=== PATIENT | male | born 1950 | race Caucasian/White ===

== ENCOUNTER 2020-10-06 08:23 | Outpatient (REF) | payer MEDICARE, SELFPAY ==
[2020-10-06 08:44] LABS: MANUAL DIFF FLAG NO
[2020-10-06 08:48] LABS: Basophils Absolute Auto 0.1 X10*3/uL (0.0-0.2); Basophils Percent Auto 1.1 % (0-2); Eosinophils Absolute Auto 0.5 X10*3/uL (0.0-0.4); Eosinophils Percent Auto 6.9 % (0-4); Hematocrit 44.2 % (42-52); Hemoglobin 14.4 g/dl (14.0-18.0); Imm Gran Abs Auto 0.02 X10*3/uL (0.00-0.03); Imm Gran Pct Auto 0.3 % (0.0-0.4); Lymphocytes Absolute Auto 1.9 X10*3/uL (1.2-4.9); Lymphocytes Percent Auto 26.2 % (20-40); Mean Corpuscular HGB Conc 32.6 g/dl (31.0-36.0); Mean Corpuscular Hemoglobin 29.9 pg (27.0-33.0); Mean Corpuscular Volume 91.9 fL (80-98); Mean Platelet Volume 9.3 fL (9.4-12.4); Monocytes Absolute Auto 0.6 X10*3/uL (0.1-1.2); Monocytes Percent Auto 8.4 % (2-11); Neutrophils Absolute Auto 4.1 X10*3/uL (2.0-8.3); Neutrophils Percent Auto 57.1 % (45-73); Platelet Count 239 X10*3/uL (160-400); Red Blood Count 4.81 X10*6/uL (4.60-5.80); Red Cell Distribution Width 11.7 % (11.0-16.0); White Blood Count 7.2 X10*3/uL (4.8-10.8)
[2020-10-06 09:14] LABS: Alanine Aminotransferase 25 U/L (0-40); Albumin Level 4.3 g/dL (3.5-5.0); Alkaline Phosphatase 63 U/L (39-117); Anion Gap 10 (12-20); Aspartate Amino Transferase 24 U/L (5-37); Bilirubin Total 0.6 mg/dL (0.0-1.0); Blood Urea Nitrogen 14 mg/dL (9-16); Calcium 9.5 mg/dL (8.4-10.2); Carbon Dioxide 30 mmol/L (22-29); Chloride 106 mmol/L (96-108); Cholesterol 184 mg/dL; Estimated Glomerular Filt Rate > 60; Glucose Fasting 104 mg/dL (60-99); HDL Cholesterol 55 mg/dL; LDL Cholesterol Calculated 104 mg/dl; Potassium 4.3 mmol/L (3.3-5.1); Sodium 142 mmol/L (135-145); Total Protein 6.9 g/dL (6.5-8.0); Triglycerides 128 mg/dL
[2020-10-06 09:16] LABS: Estimated Average Glucose 120 mg/dL; Hemoglobin A1c % 5.8 %
[2020-10-06 09:36] LABS: Prostate Specific Antigen 2.17 ng/mL (<0.05-4.0)
== END 2020-10-06 08:24 | disposition home or self-care (01) ==
LOC: HO.LAB 08:23
PROVIDERS: PCP Internal Medicine; Visit Provider Internal Medicine
DX: E78.00 Pure hypercholesterolemia, unspecified (principal); R73.03 Prediabetes; R35.1 Nocturia; Z12.5 Encounter for screening for malignant neoplasm of prostate
CPT/HCPCS: 36415; 80053; 80061; 83036; 84153; 85025

== ENCOUNTER 2021-10-05 08:11 | Outpatient (REF) | payer MEDICARE, SELFPAY ==
[2021-10-05 08:29] LABS: MANUAL DIFF FLAG NO
[2021-10-05 08:57] LABS: Basophils Absolute Auto 0.1 X10*3/uL (0.0-0.2); Basophils Percent Auto 1.3 % (0-2); Eosinophils Absolute Auto 0.5 X10*3/uL (0.0-0.4); Eosinophils Percent Auto 6.5 % (0-4); Hematocrit 42.8 % (42.0-52.0); Hemoglobin 14.2 g/dl (14.0-18.0); Imm Gran Abs Auto 0.02 X10*3/uL (0.00-0.03); Imm Gran Pct Auto 0.3 % (0.0-0.4); Lymphocytes Absolute Auto 1.6 X10*3/uL (1.2-4.9); Lymphocytes Percent Auto 22.3 % (20-40); Mean Corpuscular HGB Conc 33.2 g/dl (31.0-36.0); Mean Corpuscular Hemoglobin 30.3 pg (27.0-33.0); Mean Corpuscular Volume 91.5 fL (80.0-98.0); Mean Platelet Volume 9.4 fL (9.4-12.4); Monocytes Absolute Auto 0.6 X10*3/uL (0.1-1.2); Monocytes Percent Auto 8.8 % (2-11); Neutrophils Absolute Auto 4.3 x10*3/uL (2.0-8.3); Neutrophils Percent Auto 60.8 % (45-73); Platelet Count 241 X10*3/uL (160-400); Red Blood Count 4.68 X10*6/uL (4.60-5.80); Red Cell Distribution Width 11.9 % (11.0-16.0); White Blood Count 7.1 X10*3/uL (4.8-10.8)
[2021-10-05 09:39] LABS: Alanine Aminotransferase 21 U/L (0-40); Albumin Level 4.3 g/dL (3.5-5.0); Alkaline Phosphatase 65 U/L (39-117); Anion Gap 12 (12-20); Aspartate Amino Transferase 22 U/L (5-37); Bilirubin Total 0.9 mg/dL (0.0-1.0); Blood Urea Nitrogen 15 mg/dL (9-16); Calcium 9.3 mg/dL (8.4-10.2); Carbon Dioxide 27 mmol/L (22-29); Chloride 104 mmol/L (96-108); Cholesterol 176 mg/dL; Estimated Glomerular Filt Rate > 60; Glucose Fasting 102 mg/dL (60-99); HDL Cholesterol 56 mg/dL; LDL Cholesterol Calculated 107 mg/dl; Potassium 4.4 mmol/L (3.3-5.1); Sodium 139 mmol/L (135-145); Total Protein 6.9 g/dL (6.5-8.0); Triglycerides 68 mg/dL
== END 2021-10-05 08:12 | disposition home or self-care (01) ==
LOC: HO.LAB 08:11
PROVIDERS: PCP Internal Medicine; Visit Provider Internal Medicine
DX: E78.00 Pure hypercholesterolemia, unspecified (principal)
CPT/HCPCS: 36415; 80053; 80061; 85025

== ENCOUNTER 2021-12-07 09:21 | Outpatient (REF) | payer MEDICARE, SELFPAY ==
[2021-12-07 10:30] LABS: Estimated Average Glucose 123 mg/dL; Hemoglobin A1C 149.3165 umol/L; Hemoglobin A1c % 5.9 %
[2021-12-07 10:40] LABS: Anion Gap 15 (12-20); Blood Urea Nitrogen 15 mg/dL (9-16); Calcium 9.8 mg/dL (8.4-10.2); Carbon Dioxide 27 mmol/L (22-29); Chloride 103 mmol/L (96-108); Estimated Glomerular Filt Rate > 60; Glucose Random 99 mg/dL (60-115); Sodium 140 mmol/L (135-145)
[2021-12-07 11:04] LABS: Prostate Specific Antigen Scr 3.32 ng/mL (<0.05-4.0)
== END 2021-12-07 09:22 | disposition home or self-care (01) ==
LOC: HO.LAB 09:21
PROVIDERS: PCP Internal Medicine; Visit Provider Internal Medicine
DX: Z12.5 Encounter for screening for malignant neoplasm of prostate (principal); R73.03 Prediabetes; N40.0 Benign prostatic hyperplasia without lower urinary tract symptoms
CPT/HCPCS: 36415; 80048; 83036; 84153

== ENCOUNTER → 2022-02-01 07:27 | Outpatient (REF) | payer MEDICARE, SELFPAY ==
--- NOTE | ~2022-02-01 | NM_ITS ---
EXERCISE MYOCARDIAL PERFUSION STUDY INDICATION: Shortness of breath, abnormal EKG TECHNIQUE: The patient was brought in for an exercise perfusion study on 02/01/2022. Patient performed exercise as per Vance protocol and was injected 25 mCi of sestamibi once target heart rate was achieved. Images were obtained using the SPECT gamma camera interlaced with the gating device. Images were obtained in supine position. Resting perfusion study was performed on 02/05/2022. Patient was administered 25 mCi of sestamibi intravenously at rest. Images were then obtained in supine position. Total DLP 70mGy-cm. Images were processed with the software and compared side to side in short axis, horizontal long axis and vertical long axis views. FINDINGS: Raw images were reviewed. The stress perfusion study showed no significant perfusion abnormality. Both uncorrected as well as CT attenuation corrected images were reviewed. The gated study shows normal LV systolic function with calculated LVEF of 69%. LV cavity is normal in size. The gated study shows normal wall thickening and contraction of segments. Resting study shows no significant perfusion abnormality. Gating at rest reveals normal wall motion with ejection fraction at 60%. The findings are consistent with no reversible or fixed perfusion abnormality. NM/NM angela perf SPECT rest & str IMPRESSION: 1. Myocardial perfusion imaging study shows normal myocardial perfusion. 2. Gated LVEF is 59% during stress and 60% during rest. 3. Transient ischemic dilatation not present. EKG component of the test reported separately.
--- NOTE | 2022-02-01 07:30 | CA_ITS ---
Acquisition Time: 2022-02-01 07:55:59 Total Exercise Time: 00:05:30 Test Indications: Dyspnea Medications: Protocol: CIRILO Max HR: 151 BPM 100% of Pred: 151 BPM Max BP: 172/078 mmHG Max Work Load: 7.0 METS PT EXERCISED ON STD CIRILO PROTOCOL FOR 530 INTO STAGE 2. MAX HR 151-100%MAX. MILD SOB. NO CP. 2MMST DEP IN 2,3,F,V3-6.NML BP RESPONSE. POSITIVE TEST FOR INF/LAT STRAIN. AWAIT SCAN RESULTS. WILL REFER TO CARDIOLOGY Referred By: Kota Sims Overread By: AURE SIMS MD
== END ==
LOC: HO.CARD 07:27
PROVIDERS: PCP Internal Medicine; Visit Provider Internal Medicine
DX: R06.02 Shortness of breath (principal); R94.31 Abnormal electrocardiogram [ECG] [EKG]
CPT/HCPCS: 78452; 93017; A9500

== ENCOUNTER → 2022-03-12 14:38 | Outpatient (BNVA) | payer MEDICARE, SELFPAY | PROVIDERS: PCP Internal Medicine; Referring Provider Internal Medicine; Visit Provider Internal Medicine | DX: R06.02 Shortness of breath (principal) | CPT/HCPCS: 93005; 99202 ==

== ENCOUNTER → 2022-03-15 12:33 | Outpatient (REF) | payer MEDICARE, SELFPAY ==
--- NOTE | 2022-03-15 12:36 | CA_ITS ---
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 The visually estimated ejection fraction is between 55-60%. Diastolic function is normal for age. - Normal right ventricular cavity size and systolic function. Findings Left Ventricle Normal left ventricular size, thickness, systolic function, and wall motion. The visually estimated ejection fraction is between 55-60%. Diastolic function is normal for age. Right Ventricle Normal right ventricular cavity size and systolic function. Atria The left atrium is normal in size. There is no evidence of interatrial shunt by color Doppler. The right atrium is normal in size. Aortic Valve Normal aortic valve structure and function. There is no aortic valve stenosis. There is no aortic valve regurgitation. Mitral Valve Normal mitral valve structure and function. There is trace mitral valve regurgitation. There is no mitral valve stenosis. Pulmonic Valve Normal pulmonic valve structure and function. There is trace pulmonic valve regurgitation. Tricuspid Valve Normal tricuspid valve structure and function. There is trace tricuspid valve regurgitation. Normal right atrial pressure. There is no evidence of pulmonary hypertension. Great Vessels All visible segments of the aorta are normal in size. The visualized portions of the pulmonary artery and branches are normal. Venous The inferior vena cava is normal in size and collapses greater than 50% with inspiration. Pericardium/Pleural There is no evidence of pericardial effusion. Prior Study Comparison No prior study available for comparison. Measurements 2D Linear Measurements IVSd: 1.02 0.6-0.9/0.6-1.0 cm LVIDd: 4.58 3.9-5.3/4.2-5.9 cm LVIDd Index: 2.54 2.4-3.2/2.2-3.1 cm/m2 LVIDs: 3.40 2.0-3.6 cm LVPWd: 0.85 0.7-1.1 cm LA Diam: 3.30 2.7-3.8/3.0-4.0 cm LAIDs Index: 1.83 1.5-2.3 cm/m2 LV Mass: 178.77 67-162/88-224 g LV Mass Index: 99.31 43-95/49-115 g/m2 LVOT Diam: 2.10 3.0+(-)1.3 cm 2D Systolic Function EF 4C: 54.60 >55% EF 2C: 57.50 >55% EF BiP: 56.10 >55% Mitral Valve MV Pk E: 0.51 MV PK A: 0.72 MV Decel Time: 199.00 E/A: 0.70 E'Lateral: 8.70 E'Medial: 5.77 E/E' Med: 8.80 E/E' Lat: 5.90 PHT: 58.00 MVA PHT: 3.79 Decel [place]: 2.56 Aortic Valve AoV Pk Maximilian: 1.16 AoV Mn Maximilian: 0.83 AoV VTI: 0.23 AoV Pk Grad: 5.00 Aov Mn Grad: 3.00 CHRISTINE Cont.VTI: 2.92 LVOT LVOT Pk Maximilian: 0.99 LVOT Mn Maximilian: 0.63 LVOT VTI: 0.19 LVOT Pk Grad: 4.00 LVOT Mn Grad: 2.00 LVOT Diam: 2.10 LVOT Area: 3.46 Diastolic Function MV Pk E: 0.51 MV Pk A: 0.72 E/A: 0.70 E'Medial: 5.77 E/E' Med: 8.80 E' Laterial: 8.70 E/E' Lat: 5.90 Right Ventricle TAPSE (mm): 25.40 TVS' Maximilian: 12.30 Tricuspid Valve TR Pk Maximilian: 1.55 TR Pk Grad: 10.00 RA Press: 3.00 RVSP: 13.00 Great Vessels Aorta Sinus of Valsalva: 3.09 2.0-3.5 cm Ao Asc: 3.10 2.1-3.4 cm Updated in Other Vendor System with Status of Final Watson Gardner MD electronically signed on 03/17/2022 6:01:28 PM with status of Final
== END ==
LOC: HO.CARD 12:33
PROVIDERS: PCP Internal Medicine; Visit Provider Internal Medicine
DX: R06.02 Shortness of breath (principal)
CPT/HCPCS: 93306

== ENCOUNTER → 2022-05-23 13:44 | Outpatient (BNVA) | payer MEDICARE, SELFPAY | PROVIDERS: PCP Internal Medicine; Referring Provider Internal Medicine; Visit Provider Internal Medicine | DX: R06.02 Shortness of breath (principal); I25.10 Atherosclerotic heart disease of native coronary artery without angina pectoris; E78.5 Hyperlipidemia, unspecified; Z79.899 Other long term (current) drug therapy | CPT/HCPCS: 99212 ==

== ENCOUNTER 2022-06-10 13:41 | Outpatient (REF) | payer MEDICARE, SELFPAY ==
[2022-06-10 14:47] LABS: Anion Gap 12 (12-20); Blood Urea Nitrogen 17 mg/dL (9-16); Calcium 9.9 mg/dL (8.4-10.2); Carbon Dioxide 29 mmol/L (22-29); Chloride 104 mmol/L (96-108); Estimated Glomerular Filt Rate > 60; Glucose Random 97 mg/dL (60-115); Sodium 140 mmol/L (135-145)
== END 2022-06-10 13:42 | disposition home or self-care (01) ==
LOC: HO.LAB 13:41
PROVIDERS: PCP Internal Medicine; Visit Provider Internal Medicine
DX: I25.10 Atherosclerotic heart disease of native coronary artery without angina pectoris (principal)
CPT/HCPCS: 36415; 80048

== ENCOUNTER 2022-12-18 08:17 | Outpatient (REF) | payer MEDICARE, SELFPAY ==
[2022-12-18 08:55] LABS: MANUAL DIFF FLAG NO
[2022-12-18 09:10] LABS: Basophils Absolute Auto 0.1 X10*3/uL (0.0-0.2); Basophils Percent Auto 0.9 % (0-2); Eosinophils Absolute Auto 0.3 X10*3/uL (0.0-0.4); Eosinophils Percent Auto 4.4 % (0-4); Hematocrit 44.6 % (42.0-52.0); Hemoglobin 14.6 g/dl (14.0-18.0); Imm Gran Abs Auto 0.02 X10*3/uL (0.00-0.03); Imm Gran Pct Auto 0.3 % (0.0-0.4); Lymphocytes Absolute Auto 1.5 X10*3/uL (1.2-4.9); Lymphocytes Percent Auto 19.5 % (20-40); Mean Corpuscular HGB Conc 32.7 g/dl (31.0-36.0); Mean Corpuscular Hemoglobin 30.3 pg (27.0-33.0); Mean Corpuscular Volume 92.5 fL (80.0-98.0); Mean Platelet Volume 9.1 fL (9.4-12.4); Monocytes Absolute Auto 0.5 X10*3/uL (0.1-1.2); Monocytes Percent Auto 6.9 % (2-11); Neutrophils Absolute Auto 5.1 x10*3/uL (2.0-8.3); Platelet Count 258 X10*3/uL (160-400); Red Blood Count 4.82 X10*6/uL (4.60-5.80); Red Cell Distribution Width 11.6 % (11.0-16.0); White Blood Count 7.5 X10*3/uL (4.8-10.8)
[2022-12-18 09:29] LABS: Alanine Aminotransferase 18 U/L (0-40); Albumin Level 4.3 g/dL (3.5-5.0); Alkaline Phosphatase 71 U/L (39-117); Anion Gap 13 (12-20); Aspartate Amino Transferase 20 U/L (5-37); Bilirubin Total 0.6 mg/dL (0.0-1.0); Blood Urea Nitrogen 14 mg/dL (9-16); Calcium 9.9 mg/dL (8.4-10.2); Carbon Dioxide 29 mmol/L (22-29); Chloride 106 mmol/L (96-108); Cholesterol 181 mg/dL (<200); Estimated Glomerular Filt Rate > 60; Glucose Fasting 105 mg/dL (60-99); HDL Cholesterol 54 mg/dL (>40); LDL Cholesterol Calculated 113 mg/dL (<100); Potassium 4.7 mmol/L (3.3-5.1); Sodium 143 mmol/L (135-145); Total Protein 7.5 g/dL (6.5-8.0); Triglycerides 72 mg/dL (<150)
[2022-12-18 09:59] LABS: Prostate Specific Antigen Scr 3.06 ng/mL (<0.05-4.0); Vitamin B12 395 pg/mL (200-900)
== END 2022-12-18 08:18 | disposition home or self-care (01) ==
LOC: HO.LAB 08:17
PROVIDERS: PCP Internal Medicine; Visit Provider Internal Medicine
DX: N40.0 Benign prostatic hyperplasia without lower urinary tract symptoms (principal); E78.00 Pure hypercholesterolemia, unspecified; Z12.5 Encounter for screening for malignant neoplasm of prostate; Z87.19 Personal history of other diseases of the digestive system
CPT/HCPCS: 36415; 80053; 80061; 82607; 84153; 85025

== ENCOUNTER 2022-12-19 13:44 | Outpatient (AMB) | payer MEDICARE, SELFPAY ==
[2022-12-19 14:06] VITALS: BP 114/62; PULSE 73; BMI 21.9
--- NOTE | 2022-12-19 14:06 | MHC.OFFVIS ---
Intake Vital Signs 12/19/22 14:06 Height 5 ft 9 in Weight 148 lb 2.41 oz BMI 21.9 BP 114/62 Blood Pressure Location Lt brachial Position Sitting Pulse 73 Pulse Source Pulse Oximeter Intake Visit Reasons: fu CTA Allergies azithromycin Adverse Reaction (Intermediate, Verified 12/19/22 14:08) Abdominal Pain Medication List - Last Reconciled 12/19/22 by Andreina Luong, SENIOR SALES OPERATIONS ANALYST-C atorvastatin 10 mg PO DAILY HPI fu CTA HPI Details Donald is a 72-year-old male with past medical history hyperlipidemia who was being evaluated for shortness of breath. He recently had a CTA of the coronary arteries and now presents for follow-up. Today he reports that he does have some mild shortness of breath with activity. He feels that he may be deconditioned. 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 He denies any PND, orthopnea or edema. No chest discomfort at rest or with activity. No palpitations, presyncope, syncope, falls. He is only on atorvastatin for medications. PENDING SALE TO [facility] Surgical History H/O ileostomy Family History Mother HTN (hypertension) Diabetes Father HTN (hypertension) Brother Diabetes Sister Diabetes Social History Alcohol intake: current Alcohol intake frequency: holidays/special occasions only Patient Tobacco Use Status: Never used Tobacco Review of Systems Const All systems reviewed & are unremarkable except as noted in HPI and below ENT Denies dizziness Card Denies chest pain, Denies chest pain at rest, Denies chest pain with activity, Denies rapid heart rate, Denies pedal edema, Denies edema, Denies leg edema, Denies lightheadedness, Denies palpitations, Denies dyspnea, Reports dyspnea on exertion and Denies orthopnea Resp Denies cough, Denies dyspnea and Reports dyspnea on exertion GI Denies hematochezia and Denies change in stool character Musc Denies abnormal gait, Denies limited range of motion, Denies muscle cramps, Denies muscle weakness, Denies numbness, Denies radiating pain into limb, Denies stiffness and Denies tingling Neuro Denies abnormal gait, Denies dizziness, Denies numbness and Denies tingling Endo Denies palpitations Physical Exam Vital Signs: Last Vital Signs Pulse 73 12/19/22 14:06 BP 114/62 12/19/22 14:06 BMI result Body Mass Index 21.9 Const General: cooperative, healthy appearing, comfortable and no acute distress Orientation/consciousness: patient oriented x3 Neck Neck: Yes normal visual inspection Resp Effort & Inspection: normal respiratory effort Auscultation: clear to auscultation bilaterally, no crackles, no rales, no rhonchi and no wheezes Cardio Jugular venous distension: no JVD Rate: regular rate Rhythm: regular rhythm Heart sounds: S1 normal heart sound present, S2 normal heart sound present, no murmurs and no rubs Neuro General: patient oriented x3 Extrem General: Yes normal to inspection, No no pedal edema and No calf tenderness Psych Appearance: grossly normal Mental Status: mental status grossly normal Speech and movement: Normal speech and movement present Assessment & Plan Assessment & Plan (1) CAD (coronary artery disease): Comment: CTA of coronary arteries 06/14/2022, left main normal, proximal LAD thin layer of noncalcified plaque associated with minimal less than 25% stenosis, left circumflex no plaque or stenosis, RCA large vessel, normal, RCA dominant Code(s): I25.10 - Atherosclerotic heart disease of [place] coronary artery without angina pectoris Plan: Cardiac evaluation for shortness of breath. He underwent a stress with his PCP on 02/01/2022 showing exercise 5.5 minutes, mild shortness of breath, no chest discomfort, EKG changes suggesting ischemia, normal myocardial perfusion imaging. Echocardiogram was done on 03/15/2022 showing EF normal, diastolic function normal, RV normal . He saw Dr. Barajas in consultation on 05/23/2022. A CTA of the coronary arteries was then done on 06/14/2022 showing very mild nonobstructive coronary artery disease. Today he reports he has been doing well. He continues to have some shortness of breath with activity but feels now that it may be deconditioning. His symptom has not worsened over time. He has no chest discomfort at rest or with activity. Test results reviewed with him in detail. Continue on atorvastatin with ideal LDL goal less than 70. Recommend he start on aspirin 81 mg daily. Continue physical activity as tolerated. Discussed cardiology follow-up and he would prefer to follow with his PCP only. He will return to cardiology as needed for any new symptoms. (2) SOB (shortness of breath): Code(s): R06.02 - Shortness of breath Plan: As above Coding Level of Care Code Est Pt Level 3 (50287) Diagnoses CAD (coronary artery disease) I25.10 SOB (shortness of breath) R06.02 Time Spent (min) 22
== END 2022-12-19 14:31 | disposition home or self-care (01) ==
PROVIDERS: PCP Internal Medicine; Visit Provider Nurse Practitioner Family
DX: I25.10 Atherosclerotic heart disease of native coronary artery without angina pectoris (principal); R06.02 Shortness of breath
CPT/HCPCS: 99213

== ENCOUNTER → 2022-12-19 13:44 | Outpatient (BNVA) | payer MEDICARE, SELFPAY | PROVIDERS: PCP Internal Medicine; Visit Provider Nurse Practitioner Family | DX: I25.10 Atherosclerotic heart disease of native coronary artery without angina pectoris (principal); R06.02 Shortness of breath | CPT/HCPCS: 99212 ==

== ENCOUNTER 2023-12-20 07:43 | Outpatient (REF) | payer MEDICARE, SELFPAY ==
[2023-12-20 08:25] LABS: MANUAL DIFF FLAG NO
[2023-12-20 09:54] LABS: Basophils Absolute Auto 0.1 X10*3/uL (0.0-0.2); Eosinophils Absolute Auto 0.5 X10*3/uL (0.0-0.4); Eosinophils Percent Auto 4.7 % (0-4); Hematocrit 41.8 % (42.0-52.0); Hemoglobin 14.3 g/dl (14.0-18.0); Imm Gran Abs Auto 0.05 X10*3/uL (0.00-0.03); Imm Gran Pct Auto 0.5 % (0.0-0.4); Lymphocytes Absolute Auto 1.6 X10*3/uL (1.2-4.9); Lymphocytes Percent Auto 15.7 % (20-40); Mean Corpuscular HGB Conc 34.2 g/dl (31.0-36.0); Mean Corpuscular Hemoglobin 31.3 pg (27.0-33.0); Mean Corpuscular Volume 91.5 fL (80.0-98.0); Mean Platelet Volume 9.8 fL (9.4-12.4); Monocytes Absolute Auto 0.9 X10*3/uL (0.1-1.2); Monocytes Percent Auto 8.7 % (2-11); Neutrophils Absolute Auto 6.9 x10*3/uL (2.0-8.3); Neutrophils Percent Auto 69.4 % (45-73); Platelet Count 260 X10*3/uL (160-400); Red Blood Count 4.57 X10*6/uL (4.60-5.80); Red Cell Distribution Width 11.6 % (11.0-16.0)
[2023-12-20 10:31] LABS: Alanine Aminotransferase 25 U/L (0-40); Albumin Level 4.1 g/dL (3.5-5.0); Alkaline Phosphatase 76 U/L (39-117); Anion Gap 14 (12-20); Aspartate Amino Transferase 29 U/L (5-37); Bilirubin Total 0.6 mg/dL (0.0-1.0); Blood Urea Nitrogen 13 mg/dL (9-16); Calcium 9.8 mg/dL (8.4-10.2); Carbon Dioxide 28 mmol/L (22-29); Chloride 105 mmol/L (96-108); Cholesterol 168 mg/dL (<200); Estimated Glomerular Filt Rate > 60; Glucose Fasting 100 mg/dL (60-99); HDL Cholesterol 55 mg/dL (>40); LDL Cholesterol Calculated 92 mg/dL (<100); Potassium 4.5 mmol/L (3.3-5.1); Sodium 142 mmol/L (135-145); Total Protein 6.8 g/dL (6.5-8.0); Triglycerides 105 mg/dL (<150)
[2023-12-20 10:33] LABS: Prostate Specific Antigen Scr 2.46 ng/mL (<0.05-4.0)
== END 2023-12-20 07:44 | disposition home or self-care (01) ==
LOC: HO.LAB 07:43
PROVIDERS: PCP Internal Medicine; Visit Provider Internal Medicine
DX: E78.00 Pure hypercholesterolemia, unspecified (principal); Z12.5 Encounter for screening for malignant neoplasm of prostate
CPT/HCPCS: 36415; 80053; 80061; 84153; 85025

== ENCOUNTER 2024-07-15 13:30 | Outpatient (AMB) | payer MEDICARE, SELFPAY ==
--- NOTE | 2024-07-15 13:28 | MHC.PC.OV ---
Vital Signs 07/15/24 13:35 Height 5 ft 9 in Weight 142 lb BMI 21.0 BP 122/74 Blood Pressure Location Rt brachial Position Sitting Pulse 85 Pulse Source Pulse Oximeter Temp 97.8 F Temp Source Axillary Pulse Oximetry (%) 98 Oxygen Delivery Method Room Air Intake Visit Reasons: Routine - see comments Payment Processor Required: No Accompanied by: Self / Same As Patient Allergies azithromycin Adverse Reaction (Intermediate, Verified 07/15/24 13:29) Abdominal Pain Tobacco use date assessed: 07/15/24 Fall risk assessment: No Falls in past year Last assessed Fall Risk: 07/15/24 Dental Screening Dental Screen Date: 07/15/24 Did you have a dental visit in the last 12 months?: Yes Did you have a dental problem in the last 6 months where you did not have access to dental care?: No HPI HPI Comments History of Present Illness Details 74 year old male with a past medical history of CAD. hyperlipidemia, h/o UC s/p ileoostomy, allergica rhinitis presenting for follow up CV: Stable on atorvastatin History of UC s/p ileostomy. No colonoscopies ROS CONSTITUTIONAL: Denies weight loss, fever and chills. HEENT: Denies changes in vision and hearing. RESPIRATORY: Denies SOB and cough. CV: Denies palpitations and CP GI: Denies abdominal pain, nausea, vomiting and diarrhea. : Denies dysuria and urinary frequency. MSK: Denies new myalgia and joint pain. SKIN: Denies rash and pruritus. NEUROLOGICAL: Denies headache PSYCHIATRIC: Denies recent changes in mood. PHYSICAL EXAM: GENERAL: Alert and oriented x 3. NAD EYES: EOMI. Anicteric. HENT: Moist mucous membranes. No scleral icterus. No cervical lymphadenopathy. LUNGS: Clear to auscultation bilaterally. CARDIOVASCULAR: Regular rate and rhythm. No murmur. No JVD. ABDOMEN: Soft, non-tender +bs EXTREMITIES: No edema. Non-tender. SKIN: No rashes or lesions. Warm. NEUROLOGIC: No focal neurological deficits. CN II-XII grossly intact PSYCHIATRIC: Cooperative. Appropriate mood and affect [facility] Surgical History H/O ileostomy Family History Mother HTN (hypertension) Diabetes Father HTN (hypertension) Brother Diabetes Sister Diabetes Social History Housing: House Alcohol intake: current Alcohol intake frequency: holidays/special occasions only Patient Tobacco Use Status: Never used Tobacco e-Cigarette/Vaping Use: Never Used service: No Current occupational status: employed and retired Cognitive needs: No Hearing needs: No Vision needs: Yes (rx glasses) Questionnaire PHQ-9 Over the last 2 weeks, how often have you been bothered by any of the following problems? 1. Little interest or pleasure in doing things: not at all 2. Feeling down, depressed, or hopeless: not at all 3. Trouble falling or staying asleep, or sleeping too much: not at all 4. Feeling tired or having little energy: not at all 5. Poor appetite or overeating: not at all 6. Feeling bad about yourself - or that you are a failure or have let yourself or your family down: not at all 7. Trouble concentrating on things, such as reading the newspaper or watching television: not at all 8. Moving or speaking so slowly that other people could have noticed. Or the opposite - being so fidgety or restless that you have been moving around a lot more than usual: not at all Depression Screening Interpretation: Negative Depression Screening Done: Yes 00321 - PHQ-9 Billing: Yes Source: Developed by Drs. Curt Mack, Adwoa Moya, Tapan Rivas and colleagues, with an educational brittany from [employer]. Thrive Questionnaire Date Thrive assessed: 07/15/24 I am a: Patient Within the past 12 months, did the food you bought not last and you didn't have the money to get more?: Never true Within the past 12 months, did you worry whether your food would run out before you got money to buy more?: Never true Do you have trouble paying for medicines?: No Do you have trouble getting transportation to medical appointments?: No Do you have trouble paying your heating and electricity bill?: No Do you have trouble taking care of your child, family member or friend?: No Do you have trouble with day-to-day activities such as bathing, preparing meals, shopping, managing finances, etc.?: No Are you currently unemployed and looking for a job?: No Are you interested in more education?: No THRIVE Score: 0 AUDIT C Alcohol Use Questionnaire (AUDIT-C) 1. How often do you have a drink containing alcohol?: Monthly or less 2. How many drinks containing alcohol do you have on a typical day when you are drinking?: 1 or 2 3. How often do you have six or more drinks on one occasion?: Less than monthly Total Score: 2 CORWIN-7 AMB Questionnaire CORWIN-7 Date CORWIN - 7 assessed: 07/15/24 Feeling nervous, anxious, or on edge: 0 = Not at all Not being able to stop or control worryin = Not at all Worrying too much about different things: 0 = Not at all Trouble relaxin = Not at all Being so restless that it is hard to sit still: 0 = Not at all Becoming easily annoyed or irritable: 0 = Not at all Feeling afraid as if something awful might happen: 0 = Not at all Total CORWIN-7 score (0-4 normal; 5-9 mild; 10-14 moderate; 15-21 severe): 0 Source: Developed by Drs. Curt Mack, Adwoa Moya, Tapan Rivas and colleagues, with an educational brittany from [employer]. Physical exam (Primary Care) Vital Signs: Last Vital Signs Temp 97.8 F 07/15/24 13:35 Pulse 85 07/15/24 13:35 BP 122/74 07/15/24 13:35 Pulse Ox 98 07/15/24 13:35 Oxygen Delivery Method Room Air 07/15/24 13:35 BMI result Body Mass Index 21.0 Tobacco/Smoking Status: Tobacco use Status Tobacco use date assessed 07/15/24 07/15/24 13:30 Patient Tobacco Use Status Never used Tobacco 07/15/24 13:30 e-Cigarette/Vaping Use Never Used 07/15/24 13:39 Depression Screening Interpretation: Negative Thrive Assessment: Date of Thrive Assessment Date Thrive assessed 07/15/24 07/15/24 13:30 Coding Level of Care Code New Pt Level 3 (32025) Complex EM visit Add On G2211 Diagnoses Hyperlipidemia, unspecified hyperlipidemia type E78.5 Hyperlipidemia type: unspecified Coronary artery disease involving [place] coronary artery of [place] heart without angina pectoris I25.10 Coronary Disease-Associated Artery/Lesion type: [place] artery [place] vs. transplanted heart: [place] heart Associated angina: without angina Screening for prostate cancer Z12.5 Additional Codes PHQ-9 - 41127 - PHQ-9 Billing: Yes ([id number]) Assessment & Plan Assessment & Plan (1) Hyperlipidemia: Code(s): E78.5 - Hyperlipidemia, unspecified Category: Medical Qualifiers: Hyperlipidemia type: unspecified Qualified Code(s): E78.5 - Hyperlipidemia, unspecified (2) CAD (coronary artery disease): Comment: CTA of coronary arteries 06/14/2022, left main normal, proximal LAD thin layer of noncalcified plaque associated with minimal less than 25% stenosis, left circumflex no plaque or stenosis, RCA large vessel, normal, RCA dominant Code(s): I25.10 - Atherosclerotic heart disease of [place] coronary artery without angina pectoris Category: Medical Qualifiers: Coronary Disease-Associated Artery/Lesion type: [place] artery [place] vs. transplanted heart: [place] heart Associated angina: without angina Qualified Code(s): I25.10 - Atherosclerotic heart disease of [place] coronary artery without angina pectoris (3) Screening for prostate cancer: Code(s): Z12.5 - Encounter for screening for malignant neoplasm of prostate Category: Medical Plan 74 to establish care past medical, surgical, social reviewed Continue statin therapy. Due for labs Orders: Orders Lipid Panel Today E78.5 - Hyperlipidemia, unspecified, I25.10 - Atherosclerotic heart disease of [place] coronary artery without angina pectoris, R06.02 - Shortness of breath, Z12.5 - Encounter for screening for malignant neoplasm of prostate Prostate Specific Antigen Today E78.5 - Hyperlipidemia, unspecified, I25.10 - Atherosclerotic heart disease of [place] coronary artery without angina pectoris, R06.02 - Shortness of breath, Z12.5 - Encounter for screening for malignant neoplasm of prostate Complete Blood Count Auto Diff Today E78.5 - Hyperlipidemia, unspecified, I25.10 - Atherosclerotic heart disease of [place] coronary artery without angina pectoris, Z12.5 - Encounter for screening for malignant neoplasm of prostate Comprehensive Met. Panel Today E78.5 - Hyperlipidemia, unspecified, I25.10 - Atherosclerotic heart disease of [place] coronary artery without angina pectoris, R06.02 - Shortness of breath, Z12.5 - Encounter for screening for malignant neoplasm of prostate
[2024-07-15 13:35] VITALS: BP 122/74; PULSE 85; TEMP 36.6; O2SAT 98; BMI 21.0
--- OUTSIDE RECORDS SUMMARY | 2024-07-15 16:00 | XMS_ITS | Patient Health Record ---
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 Name Role Phone Virginia Falk Primary Care Provider Rishi Kwong Unavailable [phone] Jeannine Chun Unavailable [phone] Allergies Allergen (clinical drug ingredient) Drug/Non Drug Allergy documented on EMR Reaction Allergy Type Onset Date Status Biaxin pt states not allergic Drug Allergy Active erythromycin Erythromycin stomach ache Drug Allergy Active azithromycin Zithromax Z-Dat pt states not allergic Drug Allergy Active Reason For Referral No Information Medications Medication SIG (Take, Route, Frequency, Duration) Notes Start Date End Date Status Atorvastatin Calcium 10 MG Orally Active Immunizations Vaccine Route Administration Date Status Comme nts COVID-19 Pfizer BioNTech Vaccine Unknown 05/28/2020 Adm inistered COVID-19 Pfizer BioNTech Vaccine Unknown 06/18/2020 Adm inistered Influenza Unknown 11/21/2016 Administered Social History Tobacco Use: Social History Observation Description Date Details (start date - stop date) Never Smoker NA - NA Tobacco use other than smoking: Question Answer Notes Are you an other tobacco user? No Tobacco Control (Standard) Question Answer Notes Tobacco use: Nonsmoker Additional Findings: Tobacco non-user Current no nsmoker AUDIT-C (Standard) Question Answer Notes Did you have a drink containing alcohol in the p ast year? No Points 0 Interpretation Negative Problems Problem Type SNOMED Code ICD Code Onset Dates Problem Status W/U Status Risk Notes Problem Acquired hammer toe of right foot (236754448548999 5) Other hammer toe(s) (acquired), right foot (M20.41) Active confirmed Problem Onychomycosis (564965766) Onychomycosis (B35.1) Active confirmed Problem Ulcer of toe of right foot (disorder) (903237356929853 01) Skin ulcer of toe of right foot, limited to breakdown of skin (L97.511) Active confirmed Response to treatment, Nonapplicable Problem Localized, primary osteoarthritis of the ankle and/or foot (992738876) Arthritis of joint of lesser toe, right (M19.071) Active confirmed Vital Signs Heart Rate 88 /min 07/09/2024 Blood pressure diastolic 104 mm Hg 07/09/2024 Height 5ft 9in in 07/09/2024 Blood pressure systolic 159 mm Hg 07/09/2024 Weight 145 lbs 07/09/2024 BMI 21.41 kg/m2 07/09/2024 Procedures Procedure Date Ordered Date Performed Result Body Sit e 28562-HFEMLEK NAIL, 6 OR MORE 06/07/2024 N/A 53439- Debride <25 sq cm 06/07/2024 N/A 90532 I&D ABSCESS- SIMPLE,SINGLE 06/07/2024 N/A Encounters Encounter Location Date [facility] [address] [address] 06/07/2024 Rishi Deion Pain in right toe(s) M79.674 ; Onychomycosis B35.1 ; Pain in left toe(s) M79.675 ; Abscess of toe, right L02.611 ; Other hammer toe(s) (acquired), right foot M20.41 ; Arthritis of joint of lesser toe, right M19.071 and Skin ulcer of toe of right foot, limited to breakdown of skin L97.511 [facility] [address] [address] 07/09/2024 Jeannine Chun Pain in right toe(s) M79.674 ; Other hammer toe(s) (acquired), right foot M20.41 and Arthritis of joint of lesser toe, right M19.071 [facility] [place] [address] [place] [address] 07/09/2024 Jeannine Chun Assessments Encounter Date Diagnosis (ICD Code) Assessment Notes Treatment Notes Treatment Clinical Notes Section Notes 06/07/2024 Pain in right toe(s) (ICD-10 - M79.674) 07/09/2024 Pain in right toe(s) (ICD-10 - M79.674) 07/09/2024 Other hammer toe(s) (acquired), right foot (ICD-10 - M20.41) 07/09/2024 Arthritis of joint of lesser toe, right (ICD-10 - M19.071) 06/07/2024 Onychomycosis (ICD-10 - B35.1) 06/07/2024 Pain in left toe(s) (ICD-10 - M79.675) 06/07/2024 Abscess of toe, right (ICD-10 - L02.611) Patient Educated with: WOUND CARE INSTRUCTIONS. pdf (WOUND CARE INSTRUCTIONS. pdf) 06/07/2024 Other hammer toe(s) (acquired), right foot (ICD-10 - M20.41) 06/07/2024 Arthritis of joint of lesser toe, right (ICD-10 - M19.071) 06/07/2024 Skin ulcer of toe of right foot, limited to breakdown of skin (ICD-10 - L97.511) Response to treatment, Nonapplicable Patient Educated with: WOUND CARE INSTRUCTIONS. pdf (WOUND CARE INSTRUCTIONS. pdf) 06/07/2024 Other Plan Of Treatment Pending Test Test Name Order Date X ray : Foot, right 3V 07/09/2024 68915-KCMDWBI NAIL, 6 OR MORE 06/07/2024 11121-CIHYHKJ NAIL, 6 OR MORE 05/17/2021 77342-RDCYFTH NAIL, 6 OR MORE 06/12/2022 32210-PBJMTSN NAIL, 6 OR MORE 12/18/2022 19285-JWIZGZL NAIL, 6 OR MORE 04/16/2023 76614-TNWNMUB NAIL, 6 OR MORE 10/20/2017 36242-DLCNKFP NAIL, 6 OR MORE 04/20/2018 25751-GHVOHFF NAIL, 6 OR MORE 10/21/2018 45863-PUNZHQW NAIL, 6 OR MORE 04/21/2019 39385-WLASFAY NAIL, 6 OR MORE 11/11/2019 11530-RTOVGUN NAIL, 6 OR MORE 02/17/2020 67452-ICGRIPK NAIL, 6 OR MORE 05/18/2020 64785-MIBDCGP NAIL, 6 OR MORE 11/16/2020 42933-Heej Destruction, 02-2311/16/2020 67383-Sauw Destruction, 02-2305/18/2020 55584-Khvo Destruction, 02-2302/17/2020 61907-Bsjv Destruction, 02-2311/11/2019 13760-Yfmn Destruction, 02-2304/21/2019 11098-Ywpa Destruction, 02-2310/21/2018 39305-Hfxp Destruction, 02-2304/20/2018 97039-Gnwo Destruction, 02-2304/16/2023 11543-Zeyi Destruction, 02-2312/18/2022 21944-Npyl Destruction, 02-2306/12/2022 03854-Kfpa Destruction, 02-2305/17/2021 55375- Debride <25 sq cm 06/07/2024 03908 I&D ABSCESS- SIMPLE,SINGLE 025 85713 - Tenotomy, open flexor 04/28/2019 66973 - TENOTOMY, OPEN, EXTENSOR 020 Insurance Providers Payer Name Payer Address Payer Phone Subscriber Number Group Number Insured Name Patient Relationship to Insured Coverage Start Date Coverage End Date Medicare National [employer] [address] [place] [address] [id number] Donald Rodriguez Self - patient is the insured 8 [employer] [facility] [address] [place] [address] [id number] Donald Rodriguez Self - patient is the insured Medical (General) History Medical History History ICD Code Colitis Crohns disease Measles Mumps Chicken pox CAD Surgical History Surgery Date(Month/Year) ileostomy 1993
== END 2024-07-15 13:51 | disposition home or self-care (01) ==
LOC: HO.HMCHD 13:30
PROVIDERS: PCP Internal Medicine; Visit Provider Internal Medicine
DX: E78.5 Hyperlipidemia, unspecified (principal); I25.10 Atherosclerotic heart disease of native coronary artery without angina pectoris; Z12.5 Encounter for screening for malignant neoplasm of prostate

== ENCOUNTER → 2024-07-15 13:30 | Outpatient (BNVA) | payer MEDICARE, SELFPAY | PROVIDERS: PCP Internal Medicine; Visit Provider Internal Medicine | DX: E78.5 Hyperlipidemia, unspecified (principal); I25.10 Atherosclerotic heart disease of native coronary artery without angina pectoris; Z12.5 Encounter for screening for malignant neoplasm of prostate | CPT/HCPCS: 96127; 99202 ==

== ENCOUNTER 2024-09-05 10:10 | Inpatient (IN) | payer MEDICARE, SELFPAY ==
--- NOTE | ~2024-09-05 | CT_ITS ---
CLINICAL HISTORY: L flank pain CT abdomen and pelvis without contrast Comparison: None provided Findings: No consolidation or effusion. There is a 2 cm cyst within the left kidney. There is no left-sided hydronephrosis, however there is mild left hydroureter. At the left ureterovesical junction there is a cluster of two 2 mm stones. Right kidney is normal. 1 cm cyst in the right kidney. No hydronephrosis of the right kidney. Spleen, adrenal glands, pancreas, contracted gallbladder and liver unremarkable. There is a ileostomy in the right lower quadrant. There has been a previous total colectomy. Small bowel loops are normal caliber without evidence of small-bowel obstruction. No wall thickening. No free air or ascites. Prostatomegaly, with protrusion into the base of the bladder. Bladder is unremarkable otherwise. No lytic or blastic bone lesions. No acute fracture deformity. IMPRESSION: There are two 2 mm stones at the left ureterovesical junction resulting in mild left hydroureter. Prostatomegaly. This document has been electronically signed by: Tremaine Cortez MD on 09/05/2024 12:13:15
[2024-09-05 10:31] VITALS: BP 136/75; PULSE 79; RESP 16; TEMP 36; O2SAT 98; BMI 21.7
--- OUTSIDE RECORDS SUMMARY | 2024-09-05 10:45 | XMS_ITS | Patient Health Record ---
Author Organization [facility] Address [address] [facility] [place] [address] Care Team Providers Care Direct Customer Service Representative Name Role Phone Virginia Falk Primary Care Provider Rishi Kwong Unavailable [phone] Jeannine Chun Unavailable [phone] Allergies Allergen (clinical drug ingredient) Drug/Non Drug [...] Vaccine Route Administration Date Status Comme nts Influenza Unknown 11/21/2016 Administered COVID-19 Pfizer BioNTech Vaccine Unknown 05/28/2020 Adm inistered COVID-19 Pfizer BioNTech Vaccine Unknown 06/18/2020 Adm inistered Social History Tobacco Use: Social History Observation [...] Problem Acquired hammer toe of right foot (20487833214281 05) Other hammer toe(s) (acquired), right foot (M20.41) Active confirmed Problem Onychomycosis (111749999) Onychomycosis (B35.1) Active confirmed Problem Ulcer of toe of right foot (disorder) (62990945811779 101) Skin ulcer of toe of right foot, limited to breakdown of skin (L97.511) Active confirmed Response to treatment, Nonapplicable Problem Arthritis of joint of lesser toe, right (M19.071) Active confirmed Vital Signs Heart Rate 88 /min 07/09/2024 Blood pressure diastolic 104 mm Hg 07/09/2024 Height 5ft 9in in 07/09/2024 Blood pressure systolic 159 mm Hg 07/09/2024 Weight 145 lbs 07/09/2024 BMI 21.41 kg/m2 07/09/2024 Procedures Procedure Date Ordered Date Performed Result Body Sit e 51557-ZHLYFIY NAIL, 6 OR MORE 06/07/2024 N/A 15552- Debride <25 sq cm 06/07/2024 N/A 12177 I&D ABSCESS- SIMPLE,SINGLE 06/07/2024 N/A Encounters Encounter Location Date [facility] [address] [address] 06/07/2024 Rishi Deion Pain in right toe(s) M79.674 ; Onychomycosis B35.1 ; Pain in left toe(s) M79.675 ; Abscess of toe, right L02.611 ; Other hammer toe(s) (acquired), right foot M20.41 ; Arthritis of joint of lesser toe, right M19.071 and Skin ulcer of toe of right foot, limited to breakdown of skin L97.511 [facility] [address] [address] 07/09/2024 Jeannine Chun Pain in right toe(s) M79.674 ; Other hammer toe(s) (acquired), right foot M20.41 and Arthritis of joint of lesser toe, right M19.071 [facility] [address] [place] [address] 07/09/2024 Jaennine Chun Assessments Encounter Date Diagnosis (ICD Code) [...] X ray : Foot, right 3V 07/09/2024 47549-SNFIWKL NAIL, 6 OR MORE 06/07/2024 01504-LFHQYEK NAIL, 6 OR MORE 05/17/2021 53093-RNSTGTV NAIL, 6 OR MORE 06/12/2022 43306-PQYVMEJ NAIL, 6 OR MORE 12/18/2022 93188-VDTJVSQ NAIL, 6 OR MORE 04/16/2023 24138-KTJMGHJ NAIL, 6 OR MORE 10/20/2017 56216-COENKRK NAIL, 6 OR MORE 04/20/2018 41250-NHJFBDT NAIL, 6 OR MORE 10/21/2018 68887-TXMAKGP NAIL, 6 OR MORE 04/21/2019 63025-ABZORWM NAIL, 6 OR MORE 11/11/2019 92323-YUGFZTT NAIL, 6 OR MORE 02/17/2020 11644-TGLQYIH NAIL, 6 OR MORE 05/18/2020 50132-RWBKASO NAIL, 6 OR MORE 11/16/2020 32114-Cjcl Destruction, 02-2311/16/2020 02314-Lrvt Destruction, 02-2305/18/2020 63568-Mtfh Destruction, 02-2302/17/2020 53585-Mjpc Destruction, 02-2311/11/2019 68891-Xvxg Destruction, 02-2304/21/2019 45312-Guca Destruction, 02-2310/21/2018 96548-Ltjp Destruction, 02-2304/20/2018 36643-Dvwi Destruction, 02-2304/16/2023 10500-Wbde Destruction, 02-2312/18/2022 68811-Omsk Destruction, 02-2306/12/2022 42250-Djkc Destruction, 02-2305/17/2021 05003- Debride <25 sq cm 06/07/2024 74349 I&D ABSCESS- SIMPLE,SINGLE 025 67102 - Tenotomy, open flexor 04/28/2019 06395 - TENOTOMY, OPEN, EXTENSOR 020 Insurance Providers Payer Name Payer Address Payer Phone Subscriber Number Group Number Insured Name Patient Relationship to Insured Coverage Start Date Coverage End Date Medicare National [employer] Sv[employer] [address] [place] [address] [id number] Donald Rodriguez Self - patient is the insured [facility] [address] [place] [address] [id number] Donald Rodriguez Self - patient is the insured Medical (General) History Medical History History ICD Code Colitis Crohns disease Measles Mumps Chicken pox CAD Surgical History Surgery Date(Month/Year) ileostomy 1993
[2024-09-05 10:48] LABS: Appearance Urine Clear; Glucose Urine UA Negative (Negative); PH 5.5 (5.0-9.0); Specific Gravity - Urine 1.010 (1.005-1.025); UMIC TRIGGER UACC YES
--- NOTE | 2024-09-05 10:59 | ED.ABDPAIN ---
HPI - Abdominal Pain General Chief Complaint: Abdominal Pain Stated Complaint: Kidney stone Time Seen by Provider: 09/05/24 10:36 Source: patient, family and old records reviewed Mode of arrival: ambulatory Limitations: no limitations History of Present Illness ED Provider: MARY HPI narrative: 74 yo malewith PMH of renal colic but no episodes in 10 years, HLD, has prior ileostomy in the for UC not on any medications currently here with c/o L flank pain moving since Friday night feels like a kidney stone tried water, tea but no improvement. He is able to urinate. Denies n/v/d fevers. His abdomen does not hurt. He states it just hasn't gone away. MD elicited complaint: flank pain Pertinent past history: kidney stones Onset (ago): day(s) (2) Pain Consistency: constant Location: L flank Severity: moderate Quality: stabbing and aching Radiation: none Migration to: L flank Exacerbating factors: nothing Relieving factors: nothing Context: history of similar episodes Associated symptoms: denies other symptoms Related Data Previous Rx's ?Medication ?Instructions ?Recorded atorvastatin 10 mg tablet 10 mg PO DAILY #90 tabs 05/14/24 Allergies Allergy/AdvReac Type Severity Reaction Status Date / Time azithromycin AdvReac Intermediate Abdominal Verified 09/05/24 10:32 Pain Review of Systems Review of Systems Constitutional : No Fever, No Chills, No Fatigue ENT/Mouth : No sore throat, No Rhinorrhea Eyes: No Eye Pain, No Swelling, No Redness Cardiovascular : No Chest Pain, No SOB, No Dyspnea on Exertion Respiratory : No Cough, No Sputum Gastrointestinal : No Nausea, No Vomiting, No Diarrhea, No abdominal Pain, pos flank pain Genitourinary : No Dysuria, No Urinary Frequency, No Hematuria, Musculoskeletal : No joint pain, No Myalgias, No Joint Swelling Skin : No Skin Lesions, No rash Neuro : No Weakness, No Numbness, No Dizziness, no Headache All other systems reviewed and are negative [facility] Past Medical History Attestation statement: The following information was validated with the patient. Source: old records reviewed Medical History Hyperlipidemia CAD (coronary artery disease) Surgical History H/O ileostomy Family History Family History Mother HTN (hypertension) Diabetes Father HTN (hypertension) Brother Diabetes Sister Diabetes Social History Social History Housing: House Alcohol intake: current Alcohol intake frequency: holidays/special occasions only Patient Tobacco Use Status: Never used Tobacco Smoked in Last 30 Days: No e-Cigarette/Vaping Use: Never Used Use of substances other than those prescribed or required for medical reasons: No Advance Directives: No Advance Directives Information Provided: Yes Do you have a plan to hurt others: No Plan service: No Current occupational status: employed and retired Cognitive needs: No Hearing needs: No Vision needs: Yes (rx glasses) Physical Exam ED Vital Signs: Vital Signs - 24 hr 09/05/24 10:31 Temperature 96.8 F Pulse Rate 79 Respiratory Rate 16 Blood Pressure 136/75 Pulse Oximetry 98 Oxygen Delivery Method Room Air BMI result Body Mass Index 21.7 Appearance: Alert. Oriented X3. No acute distress. Eyes: Pupils equal, round and reactive to light. ENT: Pharynx normal. Neck: Normal inspection. Neck supple. CVS: Normal heart rate and rhythm. Pulses normal. Respiratory: No respiratory distress. Breath sounds normal. Abdomen: Soft and nontender. no abd ttp on exam Skin: Skin warm and dry. Normal skin color. Normal skin turgor. Extremities: No lower extremity edema. No calf ttp Neuro: Oriented X 3. No motor deficit. No sensory deficit. CN2-12 intact Medical Decision Making Medical Decision Making [facility] Narrative: 74 yo malewith PMH of renal colic but no episodes in 10 years, HLD, has prior ileostomy in the for UC now here with c/o L flank pain but no associated symptoms he has no CP/SOB no abdominal pain or ttp at this time will obtain labs, UA, CT scan for renal colic/mass/constipation Differential Diagnosis Differential Diagnoses: The differential diagnosis associated with the presentation includes renal colic/mass/constipation Admission/Observation Consideration of admission/observation: Escalation of care including admission/observation considered admit for PAYAM no improvement with 2L of IVF Consult Healthcare Provider Management of the patient was discussed with: Hospitalist (hospitalist will admit) and Brick Grader Dr. Espinosa aware will follow Lab Data [facility] Lab Attestation statement: I reviewed the patient's lab results. 09/05/24 11:08 09/05/24 13:11 Labs: Lab Results 09/05/24 09/05/24 09/05/24 Range/Units 10:41 11:08 13:11 WBC 9.8 (4.8-10.8) X10*3/uL RBC 4.49 L (4.60-5.80) X10*6/uL Hgb 13.9 L (14.0-18.0) g/dl Hct 40.9 L (42.0-52.0) % MCV 91.1 (80.0-98.0) fL MCH 31.0 (27.0-33.0) pg MCHC 34.0 (31.0-36.0) g/dl RDW 11.9 (11.0-16.0) % Plt Count 259 (160-400) X10*3/uL MPV 9.5 (9.4-12.4) fL Immature Gran % (Auto) 0.3 (0.0-0.4) % Neut % (Auto) 72.3 (45-73) % Lymph % (Auto) 13.6 L (20-40) % [place] % (Auto) 9.1 (2-11) % Eos % (Auto) 4.0 (0-4) % Baso % (Auto) 0.7 (0-2) % Lymph # (Auto) 1.3 (1.2-4.9) X10*3/uL [place] # (Auto) 0.9 (0.1-1.2) X10*3/uL Eos # (Auto) 0.4 (0.0-0.4) X10*3/uL Baso # (Auto) 0.1 (0.0-0.2) X10*3/uL Abs Immat Gran (auto) 0.03 (0.00-0.03) X10*3/uL Absolute Neuts (auto) 7.1 (2.0-8.3) x10*3/uL Absolute Nucleated RBC 0.000 (0.0-0.012) X10*3/uL Nucleated RBC % (auto) 0.0 (0.0-0.2) /100WBC Sodium 143 (135-145) mmol/L Potassium 4.9 (3.3-5.1) mmol/L Chloride 107 (96-108) mmol/L Carbon Dioxide 28 (22-29) mmol/L Anion Gap 13 (12-20) BUN 19 H (9-16) mg/dL Creatinine 1.91 H 1.74 H (0.5-1.4) mg/dL Estim Creat Clear Calc 33.0 36.2 Estimated GFR 35 39 Random Glucose 100 (60-115) mg/dL Calcium 9.8 (8.4-10.2) mg/dL Magnesium 2.4 (1.6-2.6) mg/dL Total Bilirubin 0.4 (0.0-1.0) mg/dL Direct Bilirubin 0.1 (0.0-0.5) mg/dL AST 30 (5-37) U/L ALT 37 (0-40) U/L Alkaline Phosphatase 92 (39-117) U/L Total Protein 7.0 (6.5-8.0) g/dL Albumin 4.5 (3.5-5.0) g/dL Urine Color Yellow Urine Appearance Clear Urine pH 5.5 (5.0-9.0) Ur Specific [place] 1.010 (1.005-1.025) Urine Protein Negative (Neg-Trace) mg/dL Urine Glucose (UA) Negative (Negative) mg/dL Urine Ketones Negative (Negative) mg/dL Urine Blood Large (3+) H (Negative) Urine Nitrite Negative (Negative) Ur Leukocyte Esterase Negative (Negative) Urine RBC >20 H (0-2) /HPF Urine WBC 0-5 (0-5) /HPF Ur Squamous Epith Cells 0-2 (0-2) /HPF Urine Bacteria None Seen (None Seen) Hyaline Casts 0-2 (0-2) /LPF Independent Interpretation I performed an independent interpretation of an: CT Scan (L ureterolithiasis) Radiology Impression Discussion of test interpretation with radiology: I have reviewed the radiologist's reading. Independent Historian Clinical information obtained from an independent historian. History obtained from or confirmed by: Spouse External Record Review External record reviewed: Outpatient record Prescription Management I considered prescription management with: Pain Medication and Other Medications Administered Discontinued Medications Generic Name Dose Route Start Last Admin Trade Name Freq PRN Reason Stop Dose Admin Lactated Ringer's 1,000 mls @ 999 mls/hr 09/05/24 11:50 09/05/24 12:37 Lr IV 09/05/24 12:50 Infused .Q1H1M ONE Infusion Lactated Ringer's 1,000 mls @ 999 mls/hr 09/05/24 12:20 09/05/24 13:28 Lr IV 09/05/24 13:20 Infused .Q1H1M ONE Infusion Critical Care Time Critical Care Time Critical Care Time: Yes Total Critical Care Time: 35 Attestation: review of records, 2L of IVF for PAYAM - with repeat labs, medical consult, admission. I attest to this time spent taking care of the patient Discharge Plan Discharge Clinical Impression: Ureterolithiasis, PAYAM (acute kidney injury) Patient Disposition: Admitted As Inpatient Print Language: Kyrgyz
[2024-09-05 11:22] LABS: MANUAL DIFF FLAG NO
[2024-09-05 11:41] LABS: Hematocrit 40.9 % (42.0-52.0); Hemoglobin 13.9 g/dl (14.0-18.0); Imm Gran Abs Auto 0.03 X10*3/uL (0.00-0.03); Imm Gran Pct Auto 0.3 % (0.0-0.4); Lymphocytes Absolute Auto 1.3 X10*3/uL (1.2-4.9); Mean Corpuscular HGB Conc 34.0 g/dl (31.0-36.0); Mean Corpuscular Hemoglobin 31.0 pg (27.0-33.0); Mean Corpuscular Volume 91.1 fL (80.0-98.0); NRBC Abs Auto 0.000 X10*3/uL (0.0-0.012); NRBC Pct Auto 0.0 /100WBC (0.0-0.2); Platelet Count 259 X10*3/uL (160-400); Red Blood Count 4.49 X10*6/uL (4.60-5.80); White Blood Count 9.8 X10*3/uL (4.8-10.8)
[2024-09-05 11:45] LABS: Alanine Aminotransferase 37 U/L (0-40); Albumin Level 4.5 g/dL (3.5-5.0); Alkaline Phosphatase 92 U/L (39-117); Anion Gap 13 (12-20); Aspartate Amino Transferase 30 U/L (5-37); Blood Urea Nitrogen 19 mg/dL (9-16); Calcium 9.8 mg/dL (8.4-10.2); Carbon Dioxide 28 mmol/L (22-29); Chloride 107 mmol/L (96-108); Creatinine Clr Calc Pharmacy 33.0; Estimated Glomerular Filt Rate 35; Magnesium 2.4 mg/dL (1.6-2.6); Potassium 4.9 mmol/L (3.3-5.1); Sodium 143 mmol/L (135-145); Total Protein 7.0 g/dL (6.5-8.0)
[2024-09-05] MEDS: Lactated Ringers 1,000 ML 999 ML IV ×2 (11:55→12:38)
[2024-09-05 13:26] LABS: Creatinine Clr Calc Pharmacy 36.2; Estimated Glomerular Filt Rate 39
[2024-09-05 13:50] VITALS: BP 147/86; PULSE 78; RESP 12; TEMP 36.3; O2SAT 98
--- NOTE | 2024-09-05 13:52 | P.HPHOSP_ITS ---
History of Present Illness Date of Service: 09/05/24 Attending physician on admission: Mauro Wen Chief Complaint: payam 74 year old male with a past medical history of CAD. hyperlipidemia, h/o UC s/p ileoostomy, allergica rhinitis: Patient came to the hospital because of 3 days of left flank pain , patient says that he was taking lot of p.o. fluids, also was taking ibuprofen 1200 mg q.day(at once), yesterday he took ibuprofen 1200 mg in am and 600 mg in the evening : He said the pain was not improving so decided to come to the hospital. He feels like a kidney stone like pain. He is able to urinate. Denies n/v/d fevers. His abdomen does not hurt. He states it just hasn't gone away. In the ED:ivf /tylenol and ct abd: shows 2 mm stones upj left, mild hydroureter, prostatomegaly. UA shows microscopic hematuria. Patient also has PAYAM BUN 19, creatinine 1.9 after fluids 1.7 range. ED discussed the case with the urology-unclearif payam realted to kidney stone, patient will be admitted for further workup for payam. Review of Systems 2 Review of Systems: As above. Yes all other systems are reviewed and are negative [facility] Medical History Hyperlipidemia CAD (coronary artery disease) Family History Mother HTN (hypertension) Diabetes Father HTN (hypertension) Brother Diabetes Sister Diabetes Surgical History H/O ileostomy Social History Housing: House Alcohol intake: current Alcohol intake frequency: holidays/special occasions only Patient Tobacco Use Status: Never used Tobacco Smoked in Last 30 Days: No e-Cigarette/Vaping Use: Never Used Use of substances other than those prescribed or required for medical reasons: No Advance Directives: No Advance Directives Information Provided: Yes Do you have a plan to hurt others: No Plan service: No Current occupational status: employed and retired Cognitive needs: No Hearing needs: No Vision needs: Yes (rx glasses) Meds Allergies Allergy/AdvReac Type Severity Reaction Status Date / Time azithromycin AdvReac Intermediate Abdominal Verified 09/05/24 10:32 Pain Active Medications: Current Medications Lactated Ringer's (Lr) 1,000 mls @ 80 mls/hr IVCONT .[id number] Home Medications ?Medication ?Instructions ?Recorded ?Confirmed ?Last Taken ?Type atorvastatin 10 mg tablet 10 mg PO BEDTIME 09/05/2409/04/24 History Physical Exam 2 Vital Signs and Narrative: Vital Signs: Last Vital Signs Temp 97.4 F 09/05/24 13:50 Pulse 78 09/05/24 13:50 Resp 12 09/05/24 13:50 BP 147/86 H 09/05/24 13:50 Pulse Ox 98 09/05/24 13:50 O2 Del Method Room Air 09/05/24 13:50 BMI result Body Mass Index 21.7 Appearance: Alert.? Oriented X3. cvs: rrr, [id number] . res: clear to auscultation ,no rhonchii or wheezing abd: no rebound or guarding ,nt, bs present. Gu: left flank pain ext pulses present , no cyanosis . neuro: axo3 , nonfocal. Results Labs 09/05/24 11:08 09/05/24 13:11 Labs: Laboratory Results - last 24 hr 09/05/24 09/05/24 09/05/24 10:41 11:08 13:11 MCV 91.1 MCH 31.0 MCHC 34.0 RDW 11.9 Plt Count 259 MPV 9.5 Immature Gran % (Auto) 0.3 Neut % (Auto) 72.3 Lymph % (Auto) 13.6 L [place] % (Auto) 9.1 Eos % (Auto) 4.0 Baso % (Auto) 0.7 Lymph # (Auto) 1.3 [place] # (Auto) 0.9 Eos # (Auto) 0.4 Baso # (Auto) 0.1 Abs Immat Gran (auto) 0.03 Absolute Neuts (auto) 7.1 Absolute Nucleated RBC 0.000 Nucleated RBC % (auto) 0.0 Anion Gap 13 Estim Creat Clear Calc 33.0 36.2 Estimated GFR 35 39 Random Glucose 100 Calcium 9.8 Magnesium 2.4 Total Bilirubin 0.4 Direct Bilirubin 0.1 AST 30 ALT 37 Alkaline Phosphatase 92 Total Protein 7.0 Albumin 4.5 Urine Color Yellow Urine Appearance Clear Urine pH 5.5 Ur Specific [place] 1.010 Urine Protein Negative Urine Glucose (UA) Negative Urine Ketones Negative Urine Blood Large (3+) H Urine Nitrite Negative Ur Leukocyte Esterase Negative Urine RBC >20 H Urine WBC 0-5 Ur Squamous Epith Cells 0-2 Urine Bacteria None Seen Hyaline Casts 0-2 Assessment and Plan (1) Ureterolithiasis: Status: Acute (2) PAYAM (acute kidney injury): Status: Acute Plan 74 year old male with a past medical history of CAD. hyperlipidemia, h/o UC s/p ileoostomy, allergica rhinitis-patient came with payam ,hydrourter, renal stone /upj. payam ( multifactroial -ibuprofen use/hydroureter, renal upj stone) Added IV fluid, pain management, avoid nephrotoxic medications. Flomax. PAYAM slightly improving, monitor renal function electrolytes. Urology evaluation dvt prophylax : mech devices in case need urology procedure. Patient will benefit from 2 midnight stays because of PAYAM, renal stone and hydronephrosis-need IV hydration, renal function electrolyte monitoring, pain control, urology input for any need of urological procedure. If PAYAM does not improve patient might need Nephrology evaluation and workup. Above management discussed with the patient in detail length he understand and in agreement with above plan. Time spent 70 minute, all questions answered. Patient full code Quality Stroke Does the patient have a stroke diagnosis?: No VTE Prior VTE?: No VTE Risk Level:: Medical - moderate - high VTE Device Contraindication: N/A - Device Ordered VTE Drug Contraindication: N/A - Med Ordered
[2024-09-05] MEDS: Lactated Ringers 1,000 ML 80 ML IVCONT (13:58)
--- NOTE | 2024-09-05 15:31 | PHA.MEDREC ---
Addendum entered by Clifton Bains RPh 09/05/24 15:45: MED REC REVIEWED BY [facility] Original Note: Pharmacy Consult ? Medication Reconciliation Pharmacy has completed the medication reconciliation. Spoke with patient to confirm.
[2024-09-05 16:22] VITALS: BP 145/72; PULSE 80; RESP 18; TEMP 36.3; O2SAT 98
[2024-09-05 16:32] VITALS: BMI 22.2
--- NOTE | 2024-09-05 17:57 | PC.NURSE ---
Patient's friend brought in the patient's bottle of atorvastatin and asked nurse if these pills can be administered. I spoke to Pharmacist, who explained that according to our policy if we carry the medication then it needs to be supplied from our pharamcy. Patient was educated regarding this and understanding. Bottle of atorvastatin was given back to friend to return home, patient and friend were educated that patient can not take own pills and both verbally understood, friend is bringing home meds back home.
[2024-09-05 20:00] VITALS: BP 151/77; PULSE 80; RESP 18; TEMP 36.6; O2SAT 93
[2024-09-06] MEDS: Lactated Ringers 1,000 ML 100 ML IVCONT (00:15)
[2024-09-06 03:56] VITALS: BP 165/78; PULSE 77; RESP 16; TEMP 37.2; O2SAT 98
[2024-09-06 06:09] LABS: Anion Gap 10 (12-20); Blood Urea Nitrogen 12 mg/dL (9-16); Calcium 9.2 mg/dL (8.4-10.2); Carbon Dioxide 30 mmol/L (22-29); Chloride 106 mmol/L (96-108); Creatinine Clr Calc Pharmacy 65.6; Estimated Glomerular Filt Rate > 60; Potassium 4.4 mmol/L (3.3-5.1); Sodium 142 mmol/L (135-145)
[2024-09-06 07:59] VITALS: BP 167/82; PULSE 77; RESP 16; TEMP 36.2; O2SAT 97
--- NOTE | 2024-09-06 09:39 | MHC.CM.PN ---
Addendum entered by Breanne Mason 09/06/24 12:59: DP: PT HAS BEEN MEDICALLY CLEARED FOR DC HOME, NO SERVICES. PT HAS OWN RIDE HOME Original Note: [facility] DELIVERED PT LIVES WITH FRIEND AND IS FUNCTIONALLY INDEPENDENT. NO DME/SVCES. +DRIVES. PT DECLINES TO COMPLETE A HCP AT THIS TIME. PCP DR. DANIELLE GALLOWAY DP: HOME, NO SERVICES ANTICIPATED. PT HAS OWN RIDE HOME. CM WILL CONTINUE TO FOLLOW FOR ANY CHANGE TO DC PLAN/NEEDS.
--- NOTE | 2024-09-06 09:52 | P.CNUR_ITS ---
History of Present Illness Consult details Consult date: 09/06/24 Narrative: 74 yo male presenting with left flank pain. H/O ileostomy in the for UC not on any medications currently. He is able to urinate. Denies n/v/d fevers. CTAP -- mild left hydro secondary to 2mm ureteral stones. Review of Systems 2 Review of Systems: Yes all other systems are reviewed and are negative Constitutional: Constitutional: Reports no additional constitutional complaints Eyes: Eyes: Reports no additional eye complaints ENT: Reports system reviewed and no additional complaints, except as documented Cardiovascular: Cardiovascular: Reports no additional cardiovascular complaints Respiratory: Respiratory: Reports no additional respiratory complaints Gastrointestinal: Gastrointestinal: Reports no additional gastrointestinal complaints Genitourinary: Genitourinary: Reports as per HPI Musculoskeletal: Musculoskeletal: Reports no additional musculoskeletal complaints Integumentary/Breasts: Skin/Breast: Reports system reviewed and no additional complaints, except as docu Neurologic: Reports system reviewed and no additional complaints, except as documented Psychiatric: Psychiatric: Reports no additional psychiatric complaints Endocrine: Endocrine: Reports no additional endocrine complaints Hematologic/Lymphatic: Hematologic/Lymphatic: Reports no additional hematologic/lymphatic complaints Allergic/Immunologic: Allergic/Immunologic: Reports no additional allergic/immunologic complaints [facility] Past Medical History Medical History Hyperlipidemia CAD (coronary artery disease) Family History Family History Mother HTN (hypertension) Diabetes Father HTN (hypertension) Brother Diabetes Sister Diabetes Surgical History Surgical History H/O ileostomy Social History Social History Household Members: Friend(s) Housing: House Do you presently have visiting nurse or other home services: No Alcohol intake: current Alcohol intake frequency: holidays/special occasions only Patient Tobacco Use Status: Never used Tobacco e-Cigarette/Vaping Use: Never Used service: No Current occupational status: employed and retired Cognitive needs: No Hearing needs: No Vision needs: Yes (rx glasses) Meds Allergies Allergy/AdvReac Type Severity Reaction Status Date / Time azithromycin AdvReac Intermediate Abdominal Verified 09/05/24 10:32 Pain Active Medications: Current Medications Acetaminophen (Acetaminophen 325 Mg Tablet) 975 mg PO Q6H PRN PRN Reason: Pain, Moderate(Pain Scale 4-6) Calcium Carbonate (Calcium Carbonate 750 Mg Tab.Chew) 750 mg PO Q4H PRN PRN Reason: Heartburn Hydromorphone HCl (Hydromorphone Hcl 0.5 Mg/0.5 Ml Syringe) 0.5 mg IVPUSH Q6H PRN; Protocol PRN Reason: Pain, Severe (Pain Scale 7-10) Magnesium Hydroxide (Milk Of Magnesia 30 Ml Oral.Susp) 30 ml PO DAILY PRN PRN Reason: Constipation Melatonin (Melatonin 3 Mg Tablet) 6 mg PO BEDTIME PRN PRN Reason: Insomnia Sodium Chloride (0.9 % Sodium Chloride Flush 3 Ml Syringe) 3 ml IVFLUSH QSHIFT [facility] Last Admin: 09/06/24 08:38 Dose: Not Given Tamsulosin HCl (Tamsulosin Hcl 0.4 Mg Capsule) 0.4 mg PO DAILY [facility] Last Admin: 09/06/24 08:44 Dose: 0.4 mg Home Medications ?Medication ?Instructions ?Recorded ?Confirmed ?Last Taken ?Type atorvastatin 10 mg tablet 10 mg PO BEDTIME 09/05/2409/04/24 History Physical Exam 2 Vital Signs: Vital Signs: Last Vital Signs Temp 97.2 F 09/06/24 07:59 Pulse 77 09/06/24 07:59 Resp 16 09/06/24 07:59 BP 167/82 H 09/06/24 07:59 Pulse Ox 97 09/06/24 07:59 O2 Del Method Room Air 09/06/24 07:59 BMI result Body Mass Index 22.2 Results Labs 09/05/24 11:08 09/06/24 05:03 Labs: Abnormal lab results 09/05/24 09/05/24 09/05/24 Range/Units 10:41 11:08 13:11 RBC 4.49 L (4.60-5.80) X10*6/uL Hgb 13.9 L (14.0-18.0) g/dl Hct 40.9 L (42.0-52.0) % Lymph % (Auto) 13.6 L (20-40) % Carbon Dioxide (22-29) mmol/L Anion Gap (12-20) BUN 19 H (9-16) mg/dL Creatinine 1.91 H 1.74 H (0.5-1.4) mg/dL Urine Blood Large (3+) H (Negative) Urine RBC >20 H (0-2) /HPF 09/06/24 Range/Units 05:03 RBC (4.60-5.80) X10*6/uL Hgb (14.0-18.0) g/dl Hct (42.0-52.0) % Lymph % (Auto) (20-40) % Carbon Dioxide 30 H (22-29) mmol/L Anion Gap 10 L (12-20) BUN (9-16) mg/dL Creatinine (0.5-1.4) mg/dL Urine Blood (Negative) Urine RBC (0-2) /HPF Short CBC 09/05/24 Range/Units 11:08 WBC 9.8 (4.8-10.8) X10*3/uL Hgb 13.9 L (14.0-18.0) g/dl Hct 40.9 L (42.0-52.0) % Plt Count 259 (160-400) X10*3/uL BMP 09/05/24 09/05/24 09/06/24 11:08 13:11 05:03 Sodium 143 142 Potassium 4.9 4.4 Chloride 107 106 Carbon Dioxide 28 30 H BUN 19 H 12 Creatinine 1.91 H 1.74 H 0.98 Calcium 9.8 9.2 D Liver Function 09/05/24 Range/Units 11:08 Total Bilirubin 0.4 (0.0-1.0) mg/dL Direct Bilirubin 0.1 (0.0-0.5) mg/dL AST 30 (5-37) U/L ALT 37 (0-40) U/L Alkaline Phosphatase 92 (39-117) U/L Albumin 4.5 (3.5-5.0) g/dL Urine 09/05/24 Range/Units 10:41 Urine Color Yellow Urine Appearance Clear Urine pH 5.5 (5.0-9.0) Ur Specific [place] 1.010 (1.005-1.025) Urine Protein Negative (Neg-Trace) mg/dL Urine Glucose (UA) Negative (Negative) mg/dL All other labs normal. Imaging Additional studies: Date of Service: 09/05/24 CLINICAL HISTORY: L flank pain CT abdomen and pelvis without contrast Comparison: None provided Findings: No consolidation or effusion. There is a 2 cm cyst within the left kidney. There is no left-sided hydronephrosis, however there is mild left hydroureter. At the left ureterovesical junction there is a cluster of two 2 mm stones. Right kidney is normal. 1 cm cyst in the right kidney. No hydronephrosis of the right kidney. Spleen, adrenal glands, pancreas, contracted gallbladder and liver unremarkable. There is a ileostomy in the right lower quadrant. There has been a previous total colectomy. Small bowel loops are normal caliber without evidence of small-bowel obstruction. No wall thickening. No free air or ascites. Prostatomegaly, with protrusion into the base of the bladder. Bladder is unremarkable otherwise. No lytic or blastic bone lesions. No acute fracture deformity. IMPRESSION: There are two 2 mm stones at the left ureterovesical junction resulting in mild left hydroureter. Prostatomegaly. Assessment and Plan (1) PAYAM (acute kidney injury): Status: Acute (2) Ureterolithiasis: Status: Acute Plan IVF hydration. Flomax. Left ureteral stones small, evaluate to see if he passes stones Procedures Date of Service Date of Service: 09/06/24
--- NOTE | 2024-09-06 11:40 | PM.DS ---
DS: Providers Provider Date of Service: 09/06/24 Date of admission: 09/05/24 13:50 Date of discharge: 09/06/24 Primary care physician: Virginia Emmanuel MD Consults: 09/05/24 13:54 Consult to Urology Routine Consulting Provider: [facility] Reason for consultation: payam/upj stone Has provider been notified: No Attending physician on discharge: Mauro Wen Discharging clinician: Mauro Wen DS: Diagnosis Discharge Diagnosis (1) PAYAM (acute kidney injury): Status: Acute (2) Ureterolithiasis: Status: Acute DS: Summary Hospital Course Hospital Course: hpi:74 year old male with a past medical history of CAD. hyperlipidemia, h/o UC s/p ileoostomy, allergica rhinitis: Patient came to the hospital because of 3 days of left flank pain , patient says that he was taking lot of p.o. fluids, also was taking ibuprofen 1200 mg q.day(at once), yesterday he took ibuprofen 1200 mg in am and 600 mg in the evening : He said the pain was not improving so decided to come to the hospital. He feels like a kidney stone like pain. He is able to urinate. Denies n/v/d fevers. His abdomen does not hurt. He states it just hasn't gone away. In the ED:ivf /tylenol and ct abd: shows 2 mm stones upj left, mild hydroureter, prostatomegaly. UA shows microscopic hematuria. Patient also has PAYAM BUN 19, creatinine 1.9 after fluids 1.7 range. ED discussed the case with the urology-unclearif payam realted to kidney stone, patient will be admitted for further workup for payam. Hospital course: payam -likely multifactorial ( upj stone /ibuprofen use /prostatomegaly): Patient received IV hydration, pain management, Flomax: Seems to be improved significantly. No pain, no urinary symptoms. Seen by Urology- they will arrange follow up with us in six weeks with an ultrasound. Further management outpatient. PAYAM resolved. Patient was strongly advised to abstain from nephrotoxic medications. plan: Continue Flomax, encouraged for p.o. intake and hydration, avoid nephrotoxic substances/meds. Follow-up with the Urology as above. Above management discussed with the patient detail length he understand and in agreement with the above plan, time spent 40 minute, all question answered, staff was present during conversation. Time Attestation Total time managing care of this patient today: 40 mintues. Discharge Coordination Time (in mins): 40 minute Quality: Safe Use of Opioids Does Pt have an Active Cancer Diagnosis on the Problem List?: No Quality: Stroke Does the patient have a stroke diagnosis?: No Physical Exam Exam: Exam: Appearance: Alert.? Oriented X3.? cvs: rrr, [id number] , no murmur res: clear to auscultation ,no rhonchii or wheezing abd: no rebound or guarding ,nt, bs present. ext pulses present , no cyanosis neuro: axo3 , nonfocal. Vital Signs: Vital Signs: Last Vital Signs Temp 97.2 F 09/06/24 07:59 Pulse 77 09/06/24 07:59 Resp 16 09/06/24 07:59 BP 167/82 H 09/06/24 07:59 Pulse Ox 97 09/06/24 07:59 O2 Del Method Room Air 09/06/24 07:59 BMI result Body Mass Index 22.2 DS: Data Data Completed and Pending Labs on day of discharge: Laboratory Results - last 24 hr 09/05/24 09/05/24 09/06/24 11:08 13:11 05:03 WBC 9.8 RBC 4.49 L Hgb 13.9 L Hct 40.9 L MCV 91.1 MCH 31.0 MCHC 34.0 RDW 11.9 Plt Count 259 MPV 9.5 Immature Gran % (Auto) 0.3 Neut % (Auto) 72.3 Lymph % (Auto) 13.6 L [place] % (Auto) 9.1 Eos % (Auto) 4.0 Baso % (Auto) 0.7 Lymph # (Auto) 1.3 [place] # (Auto) 0.9 Eos # (Auto) 0.4 Baso # (Auto) 0.1 Abs Immat Gran (auto) 0.03 Absolute Neuts (auto) 7.1 Absolute Nucleated RBC 0.000 Nucleated RBC % (auto) 0.0 Hold Purple Top SEE NOTE Sodium 143 142 Potassium 4.9 4.4 Chloride 107 106 Carbon Dioxide 28 30 H Anion Gap 13 10 L BUN 19 H 12 Creatinine 1.91 H 1.74 H 0.98 Estim Creat Clear Calc 33.0 36.2 65.6 Estimated GFR 35 39 > 60 Random Glucose 100 106 Calcium 9.8 9.2 D Magnesium 2.4 Total Bilirubin 0.4 Direct Bilirubin 0.1 AST 30 ALT 37 Alkaline Phosphatase 92 Total Protein 7.0 Albumin 4.5 Imaging Chest x-ray: My impression: ct abd: There are two 2 mm stones at the left ureterovesical junction resulting in mild left hydroureter.Prostatomegaly Discharge Plan Discharge Anticipated Discharge Date/Time: 09/06/24 08:10 Patient Disposition: Home, Self-Care Discharge Diagnosis: payam/nephrolithiasis Referrals: Virginia Emmanuel MD [Primary Care Provider, Endocrinology] - 1 Week Discharge Medications: New acetaminophen 325 mg Tablet 975 mg PO Q6H PRN (Reason: Pain, Moderate(Pain Scale 4-6)) Qty: 20 0RF tamsulosin 0.4 mg Capsule 0.4 mg PO DAILY Qty: 60 0RF Continued atorvastatin 10 mg tablet 10 mg PO BEDTIME Discharge Orders: Discharge Order (Routine); Ordered 09/06/24 Ordered By: Mauro Wen Diet: Advance to usual diet Activity on Discharge: As tolerated Stand Alone Forms: Patient Portal Discharge page Print Language: Sami Other Ambulatory Orders: Basic Metabolic Panel (Routine) Timeframe: 1 Week Facility: [facility] - Location: Laboratory Ordered By: Mauro Wen Care Plan Goals: payam -likely multifactorial ( upj stone /ibuprofen use /prostatomegaly): Patient received IV hydration, pain management, Flomax: Seems to be improved significantly. Seen by Urology- they will arrange follow up with us in six weeks with an ultrasound. Further management outpatient. PAYAM resolved. Patient was strongly advised to abstain from nephrotoxic medications. plan: Continue Flomax, encouraged for p.o. intake and hydration, avoid nephrotoxic substances/meds. Follow-up with the Urology as above. Health Concerns: As above. Plan of Treatment: Continue Flomax, encouraged for p.o. intake and hydration, avoid nsaid's /asa or nephrotoxic substances/meds. Follow-up with the Urology as above. Assessment: As above. Discharge Date/Time: 09/06/24 14:58
== END 2024-09-06 14:58 | disposition home or self-care (01) | DRG 694 ==
LOC: HO.ED 13:40 → HO.EDOVER 14:01 → HO.S3 15:13
PROVIDERS: Admitting Provider Internal Medicine; Emergency Provider Emergency Medicine; PCP Internal Medicine; Visit Provider Internal Medicine
DX: N13.2 Hydronephrosis with renal and ureteral calculous obstruction (principal); I25.10 Atherosclerotic heart disease of native coronary artery without angina pectoris; N17.9 Acute kidney failure, unspecified; E78.5 Hyperlipidemia, unspecified; Z79.899 Other long term (current) drug therapy
CPT/HCPCS: 36415; 74176; 80048; 80076; 81001; 82565; 83735; 85025; 99285; J7120

== ENCOUNTER → 2024-09-05 10:53 | Outpatient (BNV) | payer MEDICARE, SELFPAY | PROVIDERS: Emergency Provider Emergency Medicine; PCP Internal Medicine; Visit Provider Radiology Diagnostic Radiology | DX: N20.2 Calculus of kidney with calculus of ureter (principal); N40.0 Benign prostatic hyperplasia without lower urinary tract symptoms | CPT/HCPCS: 74176 ==

== ENCOUNTER → 2024-09-05 13:50 | Outpatient (BNV) | payer MEDICARE, SELFPAY | PROVIDERS: Admitting Provider Internal Medicine; Emergency Provider Emergency Medicine; PCP Internal Medicine; Visit Provider Urology | DX: N17.9 Acute kidney failure, unspecified (principal); N20.1 Calculus of ureter | CPT/HCPCS: 99222 ==

== ENCOUNTER → 2024-09-05 13:50 | Outpatient (BNV) | payer MEDICARE, SELFPAY | PROVIDERS: Admitting Provider Internal Medicine; Emergency Provider Emergency Medicine; PCP Internal Medicine; Visit Provider Internal Medicine | DX: N20.1 Calculus of ureter (principal); N17.9 Acute kidney failure, unspecified | CPT/HCPCS: 99222; 99239 ==

== ENCOUNTER 2024-09-13 13:56 | Outpatient (REF) | payer MEDICARE, SELFPAY ==
--- OUTSIDE RECORDS SUMMARY | 2024-09-13 14:08 | XMS_ITS | Patient Health Record ---
Author Organization [facility] Address [address] [facility] [place] [address] Care Team Providers Care Stockroom Clerk Name Role Phone Virginia Falk Primary Care Provider Rishi Kwong Unavailable [phone] Jeannine Chun Unavailable [phone] Allergies Allergen (clinical drug ingredient) Drug/Non Drug [...] Problem Acquired hammer toe of right foot (470189332508795 5) Other hammer toe(s) (acquired), right foot (M20.41) Active confirmed Problem Onychomycosis (736531333) Onychomycosis (B35.1) Active confirmed Problem Ulcer of toe of right foot (disorder) (082664071661856 01) Skin ulcer of toe of right foot, limited to breakdown of skin (L97.511) Active confirmed Response to treatment, Nonapplicable Problem Localized, primary osteoarthritis of the ankle and/or foot (901459670) Arthritis of joint of lesser toe, right (M19.071) Active confirmed Vital Signs Heart Rate 88 /min 07/09/2024 Blood pressure diastolic 104 mm Hg 07/09/2024 Height 5ft 9in in 07/09/2024 Blood pressure systolic 159 mm Hg 07/09/2024 Weight 145 lbs 07/09/2024 BMI 21.41 kg/m2 07/09/2024 Procedures Procedure Date Ordered Date Performed Result Body Sit e 13975-BLRJIZV NAIL, 6 OR MORE 06/07/2024 N/A 43422- Debride <25 sq cm 06/07/2024 N/A 73102 I&D ABSCESS- SIMPLE,SINGLE 06/07/2024 N/A Encounters Encounter Location Date Provider [facility] [address] [address] 06/07/2024 Rishi Deion Pain in right toe(s) M79.674 ; Onychomycosis B35.1 ; Pain in left toe(s) M79.675 ; Abscess of toe, right L02.611 ; Other hammer toe(s) (acquired), right foot M20.41 ; Arthritis of joint of lesser toe, right M19.071 and Skin ulcer of toe of right foot, limited to breakdown of skin L97.511 [facility] [address] [address] 07/09/2024 Jeannine Chun Pain in right toe(s) M79.674 ; Other hammer toe(s) (acquired), right foot M20.41 and Arthritis of joint of lesser toe, right M19.071 [facility] [address] [place] [address] 07/09/2024 Jeannine Chun Assessments Encounter Date Diagnosis [...] X ray : Foot, right 3V 07/09/2024 67250-YPOKVTD NAIL, 6 OR MORE 06/07/2024 44132-FZXXSGD NAIL, 6 OR MORE 05/17/2021 84293-MKBLNDC NAIL, 6 OR MORE 06/12/2022 69913-LODPANV NAIL, 6 OR MORE 12/18/2022 23203-RKHRKLW NAIL, 6 OR MORE 04/16/2023 28059-RLAMXKH NAIL, 6 OR MORE 10/20/2017 08264-LHKMULZ NAIL, 6 OR MORE 04/20/2018 15555-CJEDFEO NAIL, 6 OR MORE 10/21/2018 31743-UOQOBZJ NAIL, 6 OR MORE 04/21/2019 91608-CGTPYSR NAIL, 6 OR MORE 11/11/2019 89653-BOPQZBJ NAIL, 6 OR MORE 02/17/2020 39985-UVZJCUU NAIL, 6 OR MORE 05/18/2020 38857-ZYYPODX NAIL, 6 OR MORE 11/16/2020 01734-Ycrm Destruction, 02-2311/16/2020 35105-Hjum Destruction, 02-2305/18/2020 08126-Otbr Destruction, 02-2302/17/2020 26730-Rxak Destruction, 02-2311/11/2019 81058-Jdmj Destruction, 02-2304/21/2019 95439-Pveq Destruction, 02-2310/21/2018 46219-Saja Destruction, 02-2304/20/2018 92907-Hrtv Destruction, 02-2304/16/2023 77249-Satg Destruction, 02-2312/18/2022 48504-Sryn Destruction, 02-2306/12/2022 71566-Csdq Destruction, 02-2305/17/2021 60134- Debride <25 sq cm 06/07/2024 26977 I&D ABSCESS- SIMPLE,SINGLE 025 39974 - Tenotomy, open flexor 04/28/2019 32316 - TENOTOMY, OPEN, EXTENSOR 020 Insurance Providers Payer Name Payer Address Payer Phone Subscriber Number Group Number Insured Name Patient Relationship to Insured Coverage Start Date Coverage End Date Medicare National [employer] [address] [place] [address] [id number] Donald Rodriguez Self - patient is the insured 8 [employer] [facility] [address] [place] [address] [id number] Donald Rodriguez Self - patient is the insured Medical (General) History Medical History History ICD Code Colitis Crohns disease Measles Mumps Chicken pox CAD Surgical History Surgery Date(Month/Year) ileostomy 1993
[2024-09-13 14:45] LABS: Anion Gap 12 (12-20); Blood Urea Nitrogen 19 mg/dL (9-16); Calcium 9.4 mg/dL (8.4-10.2); Carbon Dioxide 28 mmol/L (22-29); Chloride 109 mmol/L (96-108); Estimated Glomerular Filt Rate > 60; Potassium 4.2 mmol/L (3.3-5.1); Sodium 145 mmol/L (135-145)
== END 2024-09-13 13:57 | disposition home or self-care (01) ==
LOC: HO.LAB 13:56
PROVIDERS: PCP Internal Medicine; Visit Provider Internal Medicine
DX: N17.9 Acute kidney failure, unspecified (principal)
CPT/HCPCS: 36415; 80048

== ENCOUNTER 2024-09-17 09:54 | Outpatient (AMB) | payer MEDICARE, SELFPAY ==
--- OUTSIDE RECORDS SUMMARY | 2024-09-17 09:58 | XMS_ITS | Patient Health Record ---
Author Organization [facility] Address [address] [facility] [address] [facility] [place] [address] Care Team Providers Care Dial Buffer Name Role Phone Virginia Falk Primary Care Provider Rishi Kwong Unavailable [phone] Jeannine Chun Unavailable [phone] Allergies Allergen (clinical drug ingredient) Drug/Non Drug [...] Problem Acquired hammer toe of right foot (90376922123906 05) Other hammer toe(s) (acquired), right foot (M20.41) Active confirmed Problem Onychomycosis (268055611) Onychomycosis (B35.1) Active confirmed Problem Ulcer of toe of right foot (disorder) (23990521612827 101) Skin ulcer of toe of right [...] Ordered Date Performed Result Body Sit e 40895-KMWCLVG NAIL, 6 OR MORE 06/07/2024 N/A 97280- Debride <25 sq cm 06/07/2024 N/A 00449 I&D ABSCESS- SIMPLE,SINGLE 06/07/2024 N/A Encounters Encounter Location Date Provider [facility] [address] [address] 06/07/2024 Rishi Deion Pain in right toe(s) M79.674 ; Onychomycosis B35.1 ; Pain in left toe(s) M79.675 ; Abscess of toe, right L02.611 ; Other hammer toe(s) (acquired), right foot M20.41 ; Arthritis of joint of lesser toe, right M19.071 and Skin ulcer of toe of right foot, limited to breakdown of skin L97.511 [facility] [address] [address] 07/09/2024 Jeannine Chun Pain in right toe(s) M79.674 ; Other hammer toe(s) (acquired), right foot M20.41 and Arthritis of joint of lesser toe, right M19.071 [facility] [address] [place] [address] 07/09/2024 Jeannine Chun Assessments Encounter Date Diagnosis [...] X ray : Foot, right 3V 07/09/2024 52966-CUBZRCD NAIL, 6 OR MORE 06/07/2024 91958-JXJISSK NAIL, 6 OR MORE 05/17/2021 08328-YOWNHMA NAIL, 6 OR MORE 06/12/2022 46595-ZADVOAJ NAIL, 6 OR MORE 12/18/2022 07843-HZPMCDJ NAIL, 6 OR MORE 04/16/2023 12675-SPYILPY NAIL, 6 OR MORE 10/20/2017 58306-XBFWMKB NAIL, 6 OR MORE 04/20/2018 26972-WPOKQVO NAIL, 6 OR MORE 10/21/2018 71632-YEILFCV NAIL, 6 OR MORE 04/21/2019 93814-OTNOTEF NAIL, 6 OR MORE 11/11/2019 06161-RJCWXRW NAIL, 6 OR MORE 02/17/2020 81942-EQSSECB NAIL, 6 OR MORE 05/18/2020 12660-YRKOBJA NAIL, 6 OR MORE 11/16/2020 45131-Plyz Destruction, 02-2311/16/2020 91218-Bjwe Destruction, 02-2305/18/2020 75486-Jngm Destruction, 02-2302/17/2020 24954-Uleu Destruction, 02-2311/11/2019 65398-Gmwf Destruction, 02-2304/21/2019 05468-Ngxe Destruction, 02-2310/21/2018 09629-Lszr Destruction, 02-2304/20/2018 64129-Ysoy Destruction, 02-2304/16/2023 61694-Uypg Destruction, 02-2312/18/2022 16076-Gynm Destruction, 02-2306/12/2022 64633-Hpjx Destruction, 02-2305/17/2021 45789- Debride <25 sq cm 06/07/2024 23346 I&D ABSCESS- SIMPLE,SINGLE 025 62440 - Tenotomy, open flexor 04/28/2019 23711 - TENOTOMY, OPEN, EXTENSOR 020 Insurance Providers Payer Name Payer Address Payer Phone Subscriber Number Group Number Insured Name Patient Relationship to Insured Coverage Start Date Coverage End Date Medicare National [employer] [address] [place] [address] [id number] Donald Rodriguez Self - patient is the insured [address] [facility] [address] [place] [address] [id number] Donald Rodriguez Self - patient is the insured Medical (General) History Medical History History ICD Code Colitis Crohns disease Measles Mumps Chicken pox CAD Surgical History Surgery Date(Month/Year) ileostomy 1993
--- NOTE | 2024-09-17 10:33 | MHC.PC.OV ---
Vital Signs 09/17/24 10:34 Height 5 ft 9 in Weight 148 lb 2 oz BMI 21.9 BP 136/86 Blood Pressure Location Lt brachial Respiration 12 Pulse 79 Pulse Source Pulse Oximeter Temp 98 F Temp Source Oral Pulse Oximetry (%) 97 Oxygen Delivery Method Room Air Intake Visit Reasons: ED on 09/05 for [facility] Intake Note: Emergency room follow up Barrel Bung Remover And Dumper Required: No Allergies azithromycin Adverse Reaction (Intermediate, Verified 09/17/24 10:34) Abdominal Pain Tobacco use date assessed: 07/15/24 Fall risk assessment: No Falls in past year Last assessed Fall Risk: 09/17/24 Dental Screening Dental Screen Date: 07/15/24 HPI HPI Comments History of Present Illness Details 74 year old male with a past medical history of CAD. hyperlipidemia, h/o UC s/p ileoostomy, allergica rhinitis presenting for follow up Recently seen in the ER for kidney stones. Pain improved during the ER visit and has not returned since. He is feeling well. He was placed on tamsulosin. Incidental findings on CT scan of prostatic enlargement CV: Stable on atorvastatin History of UC s/p ileostomy. No colonoscopies ROS CONSTITUTIONAL: Denies weight loss, fever and chills. HEENT: Denies changes in vision and hearing. RESPIRATORY: Denies SOB and cough. CV: Denies palpitations and CP GI: Denies abdominal pain, nausea, vomiting and diarrhea. : Denies dysuria and urinary frequency. MSK: Denies new myalgia and joint pain. SKIN: Denies rash and pruritus. NEUROLOGICAL: Denies headache PSYCHIATRIC: Denies recent changes in mood. PHYSICAL EXAM: GENERAL: Alert and oriented x 3. NAD EYES: EOMI. Anicteric. HENT: Moist mucous membranes. No scleral icterus. No cervical lymphadenopathy. LUNGS: Clear to auscultation bilaterally. CARDIOVASCULAR: Regular rate and rhythm. No murmur. No JVD. ABDOMEN: Soft, non-tender +bs EXTREMITIES: No edema. Non-tender. SKIN: No rashes or lesions. Warm. NEUROLOGIC: No focal neurological deficits. CN II-XII grossly intact PSYCHIATRIC: Cooperative. Appropriate mood and affect [facility] Medical History Hyperlipidemia CAD (coronary artery disease) Surgical History H/O ileostomy Family History Mother HTN (hypertension) Diabetes Father HTN (hypertension) Brother Diabetes Sister Diabetes Social History Household Members: Friend(s) Housing: House Do you presently have visiting nurse or other home services: No Alcohol intake: current Alcohol intake frequency: holidays/special occasions only Patient Tobacco Use Status: Never used Tobacco e-Cigarette/Vaping Use: Never Used service: No Current occupational status: employed and retired Cognitive needs: No Hearing needs: No Vision needs: Yes (rx glasses) Questionnaire PHQ-9 Over the last 2 weeks, how often have you been bothered by any of the following problems? 1. Little interest or pleasure in doing things: not at all 2. Feeling down, depressed, or hopeless: not at all 3. Trouble falling or staying asleep, or sleeping too much: not at all 4. Feeling tired or having little energy: not at all 5. Poor appetite or overeating: not at all 6. Feeling bad about yourself - or that you are a failure or have let yourself or your family down: not at all 7. Trouble concentrating on things, such as reading the newspaper or watching television: not at all 8. Moving or speaking so slowly that other people could have noticed. Or the opposite - being so fidgety or restless that you have been moving around a lot more than usual: not at all 9. Thoughts that you would be better off or of hurting yourself in some way: not at all Total score: 0 Depression Screening Interpretation: Negative Depression Screening Done: Yes 97032 - PHQ-9 Billing: Yes Source: Developed by Drs. Curt Mack, Adwoa Moya, Tapan Rivas and colleagues, with an educational brittany from [employer]. Thrive Questionnaire Date Thrive assessed: 09/06/24 I am a: Patient What is your living situation today?: I have a steady place to live Within the past 12 months, did the food you bought not last and you didn't have the money to get more?: I choose not to answer this question Within the past 12 months, did you worry whether your food would run out before you got money to buy more?: Never true Do you have trouble paying for medicines?: No Do you have trouble getting transportation to medical appointments?: No Do you have trouble paying your heating and electricity bill?: No Do you have trouble taking care of your child, family member or friend?: No Do you have trouble with day-to-day activities such as bathing, preparing meals, shopping, managing finances, etc.?: No Are you currently unemployed and looking for a job?: No Are you interested in more education?: No Please select the resources that you would like help with: None Currently or been in a relationship where the following occur: No concerns reported THRIVE Score: 0 AUDIT C Alcohol Use Questionnaire (AUDIT-C) 1. How often do you have a drink containing alcohol?: Monthly or less 2. How many drinks containing alcohol do you have on a typical day when you are drinking?: 1 or 2 3. How often do you have six or more drinks on one occasion?: Never Total Score: 1 CORWIN-7 AMB Questionnaire CORWIN-7 Date CORWIN - 7 assessed: 07/15/24 Feeling nervous, anxious, or on edge: 0 = Not at all Not being able to stop or control worryin = Not at all Worrying too much about different things: 0 = Not at all Trouble relaxin = Not at all Being so restless that it is hard to sit still: 0 = Not at all Becoming easily annoyed or irritable: 0 = Not at all Feeling afraid as if something awful might happen: 0 = Not at all Total CORWIN-7 score (0-4 normal; 5-9 mild; 10-14 moderate; 15-21 severe): 0 Source: Developed by Drs. Curt Mack, Awdoa Moya, Tapan Rivas and colleagues, with an educational brittany from [employer]. Physical exam (Primary Care) Vital Signs: Last Vital Signs Temp 98 F 09/17/24 10:34 Pulse 79 09/17/24 10:34 Resp 12 09/17/24 10:34 BP 136/86 09/17/24 10:34 Pulse Ox 97 09/17/24 10:34 Oxygen Delivery Method Room Air 09/17/24 10:34 BMI result Body Mass Index 21.9 Tobacco/Smoking Status: Tobacco use Status Tobacco use date assessed 07/15/24 09/17/24 10:37 Patient Tobacco Use Status Never used Tobacco 09/17/24 10:37 e-Cigarette/Vaping Use Never Used 09/17/24 10:37 PHQ-9: PHQ-9 Score PHQ-9: Total score 0 09/19/24 20:49 Depression Screening Interpretation: Negative Thrive Assessment: Date of Thrive Assessment Date Thrive assessed 09/06/24 09/17/24 10:37 Currently or been in a relationship where the following occur: No concerns reported Coding Level of Care Code Est Pt Level 4 (11293) Diagnoses Ureterolithiasis N20.1 Enlarged prostate N40.0 Additional Codes PHQ-9 - 98056 - PHQ-9 Billing: Yes ([id number]) Assessment & Plan Assessment & Plan (1) Ureterolithiasis: Code(s): N20.1 - Calculus of ureter Category: Medical (2) Enlarged prostate: Code(s): N40.0 - Benign prostatic hyperplasia without lower urinary tract symptoms Category: Medical Plan Kidney stones-seemingly passed as pain has resolved Follow up urology for prostate enlarged. PSA previously ordered advised to have this done Orders: Referrals Urology Referral N20.1 - Calculus of ureter, N40.0 - Benign prostatic hyperplasia without lower urinary tract symptoms
[2024-09-17 10:34] VITALS: BP 136/86; PULSE 79; RESP 12; TEMP 36.6; O2SAT 97; BMI 21.9
== END 2024-09-17 10:47 | disposition home or self-care (01) ==
LOC: HO.HMCFM 09:55
PROVIDERS: PCP Internal Medicine; Visit Provider Internal Medicine
DX: N20.1 Calculus of ureter (principal); N40.0 Benign prostatic hyperplasia without lower urinary tract symptoms

== ENCOUNTER → 2024-09-17 09:54 | Outpatient (BNVA) | payer MEDICARE, SELFPAY | PROVIDERS: PCP Internal Medicine; Visit Provider Internal Medicine | DX: N20.1 Calculus of ureter (principal); N40.0 Benign prostatic hyperplasia without lower urinary tract symptoms; I25.10 Atherosclerotic heart disease of native coronary artery without angina pectoris; E78.5 Hyperlipidemia, unspecified; Z79.899 Other long term (current) drug therapy; Z13.31 Encounter for screening for depression | CPT/HCPCS: 96127; 99212 ==

== ENCOUNTER 2024-09-17 11:12 | Outpatient (REF) | payer MEDICARE, SELFPAY ==
[2024-09-17 14:47] LABS: MANUAL DIFF FLAG NO
[2024-09-17 15:08] LABS: Hematocrit 40.4 % (42.0-52.0); Hemoglobin 13.3 g/dl (14.0-18.0); Imm Gran Abs Auto 0.02 X10*3/uL (0.00-0.03); Imm Gran Pct Auto 0.2 % (0.0-0.4); Lymphocytes Absolute Auto 1.8 X10*3/uL (1.2-4.9); Mean Corpuscular HGB Conc 32.9 g/dl (31.0-36.0); Mean Corpuscular Hemoglobin 30.6 pg (27.0-33.0); Mean Corpuscular Volume 92.9 fL (80.0-98.0); NRBC Abs Auto 0.000 X10*3/uL (0.0-0.012); NRBC Pct Auto 0.0 /100WBC (0.0-0.2); Platelet Count 281 X10*3/uL (160-400); Red Blood Count 4.35 X10*6/uL (4.60-5.80); White Blood Count 9.2 X10*3/uL (4.8-10.8)
[2024-09-17 15:42] LABS: Alanine Aminotransferase 26 U/L (0-40); Albumin Level 4.5 g/dL (3.5-5.0); Alkaline Phosphatase 71 U/L (39-117); Anion Gap 10 (12-20); Aspartate Amino Transferase 28 U/L (5-37); Blood Urea Nitrogen 19 mg/dL (9-16); Calcium 9.4 mg/dL (8.4-10.2); Carbon Dioxide 30 mmol/L (22-29); Chloride 104 mmol/L (96-108); Cholesterol 161 mg/dL (<200); Estimated Glomerular Filt Rate > 60; HDL Cholesterol 54 mg/dL (>40); Potassium 4.0 mmol/L (3.3-5.1); Sodium 140 mmol/L (135-145); Total Protein 7.0 g/dL (6.5-8.0); Triglycerides 164 mg/dL (<150)
[2024-09-17 16:01] LABS: Prostate Specific Antigen 2.10 ng/mL (<0.05-4.0)
== END 2024-09-17 11:13 | disposition home or self-care (01) ==
LOC: HO.WFDLDS 11:12
PROVIDERS: Visit Provider Internal Medicine
DX: Z12.5 Encounter for screening for malignant neoplasm of prostate (principal); I25.10 Atherosclerotic heart disease of native coronary artery without angina pectoris; E78.5 Hyperlipidemia, unspecified; R06.02 Shortness of breath
CPT/HCPCS: 36415; 80053; 80061; 84153; 85025

== ENCOUNTER 2024-10-06 13:51 | Outpatient (REF) | payer MEDICARE, SELFPAY ==
--- NOTE | ~2024-10-06 | US_ITS ---
CLINICAL HISTORY: N20.1 - Calculus of ureter Exam: Ultrasound of the kidneys. Comparison: CT/SR - CT ABDOMEN PELVIS WO IV CON - 09/05/24 11:08 EDT Findings: Right kidney measures 12.1 x 4.6 x 6.0 cm in size. Right kidney is of normal echotexture without focal lesion, nephrolithiasis, or hydronephrosis. Left kidney measures 11.7 x 4.6 x 5.5 cm in size. Simple cyst within the lower pole measures 1.8 x 1.9 x 1.9 cm in size. Hydronephrosis of the left kidney seen on recent CT scan is no longer identified. IMPRESSION: 1. Negative ultrasound of the right kidney. 2. Interval resolution of left hydronephrosis. Unchanged simple cysts within the left kidney. This document has been electronically signed by: Wilfred Oglesby MD on 10/07/2024 09:51:57
--- OUTSIDE RECORDS SUMMARY | 2024-10-06 14:44 | XMS_ITS | Patient Health Record ---
[facility] Organization [facility] Address [address] [facility] [address] [facility] [place] [address] Care Team Providers Care Deep Submergence Vehicle Operator Name Role Phone Virginia Falk Primary Care Provider Rishi Kwong Unavailable [phone] Jeannine Chun Unavailable [phone] Allergies Allergen (clinical drug ingredient) Drug/Non Drug [...] Problem Acquired hammer toe of right foot (42725998607467 05) Other hammer toe(s) (acquired), right foot (M20.41) Active confirmed Problem Onychomycosis (036324360) Onychomycosis (B35.1) Active confirmed Problem Ulcer of toe of right foot (disorder) (89534166154454 101) Skin ulcer of toe of right [...] Ordered Date Performed Result Body Sit e 67741-WEVVEHZ NAIL, 6 OR MORE 06/07/2024 N/A 44400- Debride <25 sq cm 06/07/2024 N/A 09932 I&D ABSCESS- SIMPLE,SINGLE 06/07/2024 N/A Encounters Encounter Location Date Provider Diagnosis [facility] [address] [address] 06/07/2024 Rishi Deion Pain in right toe(s) M79.674 ; Onychomycosis B35.1 ; Pain in left toe(s) M79.675 ; Abscess of toe, right L02.611 ; Other hammer toe(s) (acquired), right foot M20.41 ; Arthritis of joint of lesser toe, right M19.071 and Skin ulcer of toe of right foot, limited to breakdown of skin L97.511 [facility] [address] [address] 07/09/2024 Jeannine Chun Pain in right toe(s) M79.674 ; Other hammer toe(s) (acquired), right foot M20.41 and Arthritis of joint of lesser toe, right M19.071 [facility] [address] [place] [address] 07/09/2024 Jeannine Chun Assessments Encounter Date Diagnosis [...] X ray : Foot, right 3V 07/09/2024 30422-WPFNBCQ NAIL, 6 OR MORE 06/07/2024 90170-XQHWAGD NAIL, 6 OR MORE 05/17/2021 54105-LUNZDER NAIL, 6 OR MORE 06/12/2022 67040-UBUASYU NAIL, 6 OR MORE 12/18/2022 44615-PDOGGDE NAIL, 6 OR MORE 04/16/2023 32298-PQCUBJJ NAIL, 6 OR MORE 10/20/2017 52418-FVYXRPF NAIL, 6 OR MORE 04/20/2018 36023-YQAUQEI NAIL, 6 OR MORE 10/21/2018 95890-JGGTCDZ NAIL, 6 OR MORE 04/21/2019 22398-VJKXMHL NAIL, 6 OR MORE 11/11/2019 52144-UGQVDHR NAIL, 6 OR MORE 02/17/2020 34087-XFFLBCJ NAIL, 6 OR MORE 05/18/2020 21021-VWJRHIL NAIL, 6 OR MORE 11/16/2020 28775-Qsqa Destruction, 02-2311/16/2020 73708-Bdoi Destruction, 02-2305/18/2020 27076-Cbep Destruction, 02-2302/17/2020 97896-Toai Destruction, 02-2311/11/2019 43533-Sdud Destruction, 02-2304/21/2019 52925-Jucl Destruction, 02-2310/21/2018 91795-Ehkl Destruction, 02-2304/20/2018 42719-Wuji Destruction, 02-2304/16/2023 48858-Udoj Destruction, 02-2312/18/2022 58803-Znxk Destruction, 02-2306/12/2022 77579-Qcxt Destruction, 02-2305/17/2021 06085- Debride <25 sq cm 06/07/2024 78816 I&D ABSCESS- SIMPLE,SINGLE 025 41114 - Tenotomy, open flexor 04/28/2019 79418 - TENOTOMY, OPEN, EXTENSOR 020 Insurance Providers Payer Name Payer Address Payer Phone Subscriber Number Group Number Insured Name Patient Relationship to Insured Coverage Start Date Coverage End Date Medicare National [employer] [address] [place] [address] [id number] Donald Rodriguez Self - patient is the insured [facility] [address] [place] [address] [id number] Donald Rodriguez Self - patient is the insured Medical (General) History Medical History History ICD Code Colitis Crohns disease Measles Mumps Chicken pox CAD Surgical History Surgery Date(Month/Year) ileostomy 1993
== END 2024-10-06 13:52 | disposition home or self-care (01) ==
LOC: HO.US 13:51
PROVIDERS: PCP Internal Medicine; Visit Provider Internal Medicine
DX: N20.1 Calculus of ureter (principal)
CPT/HCPCS: 76775

== ENCOUNTER → 2024-10-06 13:53 | Outpatient (BNV) | payer MEDICARE, SELFPAY | PROVIDERS: PCP Internal Medicine; Visit Provider Radiology Diagnostic Radiology | DX: N20.1 Calculus of ureter (principal); N28.1 Cyst of kidney, acquired | CPT/HCPCS: 76775 ==

== ENCOUNTER 2024-11-26 15:08 | Outpatient (AMB) | payer MEDICARE, SELFPAY ==
--- NOTE | 2024-11-26 15:24 | A.OFFVIS_ITS ---
Intake Visit Reasons: Kidney stone/enlarged prostate Intake Note: patient presents today for: new pt kidney stones and enlarged prostate urology medications: tamsulosin blood thinners: none labs done 09/17/24: psa 2.10 US done: 10/07/24 Productivity Engineer Required: No Accompanied by: Self / Same As Patient Allergies azithromycin Adverse Reaction (Intermediate, Verified 11/26/24 15:32) Abdominal Pain HPI Comments Details: Khris is a pleasant male. - kidney stones PFS Medical History Hyperlipidemia CAD (coronary artery disease) Surgical History H/O ileostomy Family History Mother HTN (hypertension) Diabetes Father HTN (hypertension) Brother Diabetes Sister Diabetes Social History Household Members: Friend(s) Housing: House Do you presently have visiting nurse or other home services: No Alcohol intake: current Alcohol intake frequency: holidays/special occasions only Patient Tobacco Use Status: Never used Tobacco e-Cigarette/Vaping Use: Never Used service: No Current occupational status: employed and retired Cognitive needs: No Hearing needs: No Vision needs: Yes (rx glasses) Results AMB Urinalysis, Automated UA Leukoctes 0 Tricia/uL Last Edit by ALEX Willis on 11/26/24 15:43 UA Nitrite Last Edit by ALEX Willis on 11/26/24 15:43 UA Urobilinogen 0.2 mg/dL Last Edit by ALEX Willis on 11/26/24 15:4 3 UA Protein 15 mg/dL Last Edit by ALEX Willis on 11/26/24 15:43 UA pH 5.5 Last Edit by ALEX Willis on 11/26/24 15:43 UA Blood 0 Edward/uL Last Edit by ALEX Willis on 11/26/24 15:43 UA Specific Sidney 1.030 Last Edit by ALEX Willsi on 11/26/24 15: 43 UA Ketone Last Edit by ALEX Willis on 11/26/24 15:43 UA Bilirubin 0 mg/dL Last Edit by ALEX Willis on 11/26/24 15:43 UA Glucose 0 mg/dL Last Edit by ALEX Willis on 11/26/24 15:43 Results Reviewed Results Reviewed: Laboratory Last Values Urine pH (Auto) 5.5 11/26/24 15:43 Specific Sidney (Auto) 1.030 11/26/24 15:43 Urine Protein (Auto) 15 mg/dL 11/26/24 15:43 Glucose (UA)(Auto) 0 mg/dL 11/26/24 15:43 Urine Blood (Auto) 0 Edward/uL 11/26/24 15:43 Urine Bilirubin (Auto) 0 mg/dL 11/26/24 15:43 Urine Urobilinogen (Auto) 0.2 mg/dL 11/26/24 15:43 Leukocyte Esterase (Auto) 0 Tricai/uL 11/26/24 15:43 Assessment & Plan Assessment & Plan Orders: Orders AMB Urinalysis Automated Today Z13.9 - Encounter for screening, unspecified Coding
--- OUTSIDE RECORDS SUMMARY | 2024-11-26 17:38 | XMS_ITS | Patient Health Record ---
Author Organization [facility] Address [address] [facility] [place] [address] Care Team Providers Care Day Care Attendant Name Role Phone Virginia Falk Primary Care Provider Rishi Kwong Unavailable [phone] Jeannine Chun Unavailable [phone] Allergies Allergen (clinical drug ingredient) Drug/Non Drug [...] Problem Acquired hammer toe of right foot (521025137817294 5) Other hammer toe(s) (acquired), right foot (M20.41) Active confirmed Problem Onychomycosis (423655258) Onychomycosis (B35.1) Active confirmed Problem Ulcer of toe of right foot (disorder) (826466161704060 01) Skin ulcer of toe of right foot, limited to breakdown of skin (L97.511) Active confirmed Response to treatment, Nonapplicable Problem Localized, primary osteoarthritis of the ankle and/or foot (181020730) Arthritis of joint of lesser toe, right (M19.071) Active confirmed Vital Signs Heart Rate 88 /min 07/09/2024 Blood pressure diastolic 104 mm Hg 07/09/2024 Height 5ft 9in in 07/09/2024 Blood pressure systolic 159 mm Hg 07/09/2024 Weight 145 lbs 07/09/2024 BMI 21.41 kg/m2 07/09/2024 Procedures Procedure Date Ordered Date Performed Result Body Sit e 46319-PLOCFVD NAIL, 6 OR MORE 06/07/2024 N/A 56335- Debride <25 sq cm 06/07/2024 N/A 28621 I&D ABSCESS- SIMPLE,SINGLE 06/07/2024 N/A Encounters Encounter Location Date Provider Diagnosis [facility] [address] [address] 06/07/2024 Rishi Deion Pain in right toe(s) M79.674 ; Onychomycosis B35.1 ; Pain in left toe(s) M79.675 ; Abscess of toe, right L02.611 ; Other hammer toe(s) (acquired), right foot M20.41 ; Arthritis of joint of lesser toe, right M19.071 and Skin ulcer of toe of right foot, limited to breakdown of skin L97.511 [facility] [address] [address] 07/09/2024 Jeannine Chun Pain in right toe(s) M79.674 ; Other hammer toe(s) (acquired), right foot M20.41 and Arthritis of joint of lesser toe, right M19.071 [facility] [place] [address] [place] [address] 07/09/2024 Jeannine Chun Assessments Encounter Date Diagnosis [...] X ray : Foot, right 3V 07/09/2024 94108-IYHXUKI NAIL, 6 OR MORE 06/07/2024 24243-OLEVZWB NAIL, 6 OR MORE 05/17/2021 21480-FYBMKSO NAIL, 6 OR MORE 06/12/2022 47815-KBKAGQE NAIL, 6 OR MORE 12/18/2022 06621-QUUNOYI NAIL, 6 OR MORE 04/16/2023 26782-OGINLNB NAIL, 6 OR MORE 10/20/2017 32223-TCPLUPQ NAIL, 6 OR MORE 04/20/2018 89272-UXGRLUC NAIL, 6 OR MORE 10/21/2018 28876-OJOBJLO NAIL, 6 OR MORE 04/21/2019 56919-TLAKKHZ NAIL, 6 OR MORE 11/11/2019 03707-QOIQDWQ NAIL, 6 OR MORE 02/17/2020 95875-CSLBRKI NAIL, 6 OR MORE 05/18/2020 53657-JPFOBRT NAIL, 6 OR MORE 11/16/2020 58384-Movh Destruction, 02-2311/16/2020 04901-Rrji Destruction, 02-2305/18/2020 52416-Azsr Destruction, 02-2302/17/2020 05372-Ddty Destruction, 02-2311/11/2019 87307-Gsxw Destruction, 02-2304/21/2019 40170-Zomx Destruction, 02-2310/21/2018 78793-Yypu Destruction, 02-2304/20/2018 69123-Zihk Destruction, 02-2304/16/2023 17411-Cavh Destruction, 02-2312/18/2022 12573-Zyxi Destruction, 02-2306/12/2022 87945-Rkun Destruction, 02-2305/17/2021 24389- Debride <25 sq cm 06/07/2024 48587 I&D ABSCESS- SIMPLE,SINGLE 025 12153 - Tenotomy, open flexor 04/28/2019 18634 - TENOTOMY, OPEN, EXTENSOR 020 Insurance Providers Payer Name Payer Address Payer Phone Subscriber Number Group Number Insured Name Patient Relationship to Insured Coverage Start Date Coverage End Date Medicare National Govt Svcs Inc [address] [place] [address] [id number] Donald Rodriguez Self - patient is the insured 8 [facility] [address] [place] [address] [id number] Donald Rodriguez Self - patient is the insured Medical (General) History Medical History History ICD Code Colitis Crohns disease Measles Mumps Chicken pox CAD Surgical History Surgery Date(Month/Year) ileostomy 1993
== END 2024-11-26 16:22 | disposition home or self-care (01) ==
LOC: HO.HUSH 15:09
PROVIDERS: PCP Internal Medicine; Visit Provider Urology
DX: Z13.9 Encounter for screening, unspecified (principal)

== ENCOUNTER → 2024-11-26 15:08 | Outpatient (BNVA) | payer MEDICARE, SELFPAY | PROVIDERS: PCP Internal Medicine; Visit Provider Urology | DX: N20.1 Calculus of ureter (principal); N40.0 Benign prostatic hyperplasia without lower urinary tract symptoms | CPT/HCPCS: 81003; 99202 ==

== ENCOUNTER 2024-12-02 15:04 | Outpatient (AMB) | payer MEDICARE, SELFPAY ==
--- NOTE | 2024-12-02 15:10 | A.OFFPC_ITS ---
Vital Signs 12/02/24 15:22 Height 5 ft 6.5 in Weight 148 lb BMI 23.5 BP 126/78 Blood Pressure Location Lt brachial Position Sitting Respiration 18 Pulse 84 Pulse Source Pulse Oximeter Temp 97.6 F Temp Source Temporal Artery Scan Pulse Oximetry (%) 98 Oxygen Delivery Method Room Air Intake Visit Reasons: Physical Admeasurer Required: No Accompanied by: Self / Same As Patient Allergies azithromycin Adverse Reaction (Intermediate, Verified 12/02/24 15:10) Abdominal Pain Medication List - Last Reconciled 12/02/24 by Jc Hill MD atorvastatin 10 mg PO BEDTIME finasteride 5 mg PO DAILY Tobacco use date assessed: 07/15/24 Dental Screening Dental Screen Date: 07/15/24 HPI HPI Comments History of Present Illness Details The patient is a 74-year-old male presenting for a wellness visit and medication review. He reports a history of passing a kidney stone which led him to discontinue tamsulosin, a medication he had been taking to manage symptoms r elated to benign prostatic hyperplasia (BPH). He states the cessation of tamsulosin was due to feeling healthy and free from symptoms such as difficulty initiating urination, reporting that he currently urinates frequently without any significant issues. His history of prostate health remains a concern, highlighted by his decision to discontinue colonoscopies due to an existing ileostomy resulting from surgery for ulcerative colitis in 1993. The patient maintains concern over his prostate health due to his inability to undergo a colonoscopic evaluation, thus relying on prostate-specific antigen (PSA) testing for monitoring. The patient also presents with a history of hyperlipidemia for which he is taking atorvastatin 10 mg, noting that his previous lipid panel showed elevated triglycerides but a favorable LDL cholesterol level of 75 and a total cholesterol level of 101. He also references his last recorded hemoglobin A1c as 5.9 in 2021, signifying a prediabetic status, which aligns with his family history of diabetes. The patient expresses interest in retesting his A1c to monitor his prediabetic condition. Medical History: - Hyperlipidemia - Benign Prostatic Hyperplasia - Prediabetes - History of Ulcerative Colitis since - Ileostomy status post operation in 4 Surgical History: - Colectomy and creation of ileostomy in 1993 for Ulcerative Colitis Medications: - Atorvastatin 10 mg for hyperlipidemia - Finasteride 5 mg for benign prostatic hyperplasia Family History: - Family history of diabetes Diagnostic Results: - Labs: - Total cholesterol 101 mg/dL - LDL cholesterol 75 mg/dL - PSA within normal limits - Triglycerides high Social History: - Employment: Retired, previously worked at [employer] - Current activity: Works part-time at [employer] for 20 hours a week - Exercise: 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, 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, and maintains an active lifestyle - Substance use: Denies smoking and alco hol use - Nutrition: Reports frequent consumptio n of unhealthy foods [facility] Medical History (Updated 12/02/24 @ 15:40 by Jc Hill MD) Hyperlipidemia Ileostomy present Prediabetes CAD (coronary artery disease) Surgical History H/O ileostomy Family History Mother HTN (hypertension) Diabetes Father HTN (hypertension) Brother Diabetes Sister Diabetes Social History Household Members: Friend(s) Housing: House Do you presently have visiting nurse or other home services: No Alcohol intake: current Alcohol intake frequency: holidays/special occasions only Patient Tobacco Use Status: Never used Tobacco e-Cigarette/Vaping Use: Never Used service: No Current occupational status: employed and retired Cognitive needs: No Hearing needs: No Vision needs: Yes (rx glasses) Questionnaire PHQ-9 Over the last 2 weeks, how often have you been bothered by any of the following problems? 1. Little interest or pleasure in doing things: not at all 2. Feeling down, depressed, or hopeless: not at all 3. Trouble falling or staying asleep, or sleeping too much: not at all 4. Feeling tired or having little energy: not at all 5. Poor appetite or overeating: not at all 6. Feeling bad about yourself - or that you are a failure or have let yourself or your family down: not at all 7. Trouble concentrating on things, such as reading the newspaper or watching television: not at all 8. Moving or speaking so slowly that other people could have noticed. Or the opposite - being so fidgety or restless that you have been moving around a lot more than usual: not at all 9. Thoughts that you would be better off or of hurting yourself in some way: not at all Total score: 0 Depression Screening Interpretation: Negative Depression Screening Done: Yes 35257 - PHQ-9 Billing: Yes Source: Developed by Drs. Curt Mack, Adwoa Moya, Tapan Rivas and colleagues, with an educational brittany from [employer]. Thrive Questionnaire Date Thrive assessed: 12/02/24 I am a: Patient What is your living situation today?: I have a steady place to live Within the past 12 months, did the food you bought not last and you didn't have the money to get more?: Never true Within the past 12 months, did you worry whether your food would run out before you got money to buy more?: Never true Do you have trouble paying for medicines?: No Do you have trouble getting transportation to medical appointments?: No Do you have trouble paying your heating and electricity bill?: No Do you have trouble taking care of your child, family member or friend?: No Do you have trouble with day-to-day activities such as bathing, preparing meals, shopping, managing finances, etc.?: No Are you currently unemployed and looking for a job?: No Are you interested in more education?: No Currently or been in a relationship where the following occur: No concerns reported THRIVE Score: 0 AUDIT C Alcohol Use Questionnaire (AUDIT-C) 1. How often do you have a drink containing alcohol?: Never 3. How often do you have six or more drinks on one occasion?: Never Total Score: 0 Score Reviewed/Action Taken: Yes CORWIN-7 AMB Questionnaire CORWIN-7 Date CORWIN - 7 assessed: 12/02/24 Feeling nervous, anxious, or on edge: 0 = Not at all Not being able to stop or control worryin = Not at all Worrying too much about different things: 0 = Not at all Trouble relaxin = Not at all Being so restless that it is hard to sit still: 0 = Not at all Becoming easily annoyed or irritable: 0 = Not at all Feeling afraid as if something awful might happen: 0 = Not at all Total CORWIN-7 score (0-4 normal; 5-9 mild; 10-14 moderate; 15-21 severe): 0 Source: Developed by Drs. Curt Mack, Adwoa Moya, Tapan Rivas and colleagues, with an educational brittany from [employer]. CORWIN-7 Assessment Billing CORWIN-7 Assessment Tool: CORWIN-7 Assessment 22488 Review of Systems Narrative - Genitourinary: Denies difficulty in initiating urination; reports frequent urination - Gastrointestinal: Denies nausea, vomiting - Cardiovascular: Denies chest pain, shortness of breath - Neurological: Denies headaches, vision changes - General: Denies malaise, reports good overall health and mood All systems reviewed & are unremarkable except as reviewed in HPI and above Physical exam (Primary Care) Vital Signs: Last Vital Signs Temp 97.6 F 12/02/24 15:22 Pulse 84 12/02/24 15:22 Resp 18 12/02/24 15:22 BP 126/78 12/02/24 15:22 Pulse Ox 98 12/02/24 15:22 Oxygen Delivery Method Room Air 12/02/24 15:22 BMI result Body Mass Index 23.5 Tobacco/Smoking Status: Tobacco use Status Tobacco use date assessed 07/15/24 12/02/24 15:11 Patient Tobacco Use Status Never used Tobacco 12/02/24 15:11 e-Cigarette/Vaping Use Never Used 12/02/24 15:11 Depression Screening Interpretation: Negative Thrive Assessment: Date of Thrive Assessment Date Thrive assessed 09/12/24 12/02/24 15:11 Currently or been in a relationship where the following occur: No concerns reported Narrative General: Alert and oriented, Well nourished, No acute distress. Eye: Pupils are equal, round and reactive to light, Intact accommodation, Extraocular movements are intact, Normal conjunctiva, Vision unchanged. HENT: Normocephalic, Atraumatic, Tympanic membranes are clear, Normal hearing, Oral mucosa is moist, No pharyngeal erythema, Ear canals patent. Respiratory: Lungs CTA bilaterally, No wheeze, Respirations are non-labored. Cardiovascular: Regular rate, Regular rhythm, S1 auscultated, S2 auscultated, No murmur, Good pulses equal in all extremities, Normal peripheral perfusion, No edema. Gastrointestinal: Soft, Non-tender, Non-distended, Normal bowel sounds, No organomegaly, Iliostomy present since 1993. Musculoskeletal: Normal range of motion, Normal strength, No tenderness, No swelling, No deformity, Normal gait. Integumentary: Warm, Dry, [place], Intact. Neurologic: Alert, Oriented, Normal sensory, Normal motor function, No focal defects, Cranial Nerves II-XII are grossly intact, Normal deep tendon reflexes. Psychiatric: Cooperative, Appropriate mood & affect, Normal judgment. Coding Level of Care Code Est Pt Prev Care >65y(55471) Diagnoses Enlarged prostate N40.0 Hyperlipidemia, unspecified hyperlipidemia type E78.5 Hyperlipidemia type: unspecified Prediabetes R73.03 Ileostomy present Z93.2 Additional Codes PHQ-9 - 46086 - PHQ-9 Billing: Yes ([id number]) CORWIN-7 Assessment Billing - CORWIN-7 Assessment Tool: CORWIN-7 Assessment 35601 ([id number]) Assessment & Plan Assessment & Plan (1) Enlarged prostate: Comment: - Patient has discontinued tamsulosin following passage of kidney stone. - Advised to resume tamsulosin if urinary symptoms, such as difficulty initiating stream, reoccur. Current urinary frequency does not necessitate medication. - Stable on finasteride Code(s): N40.0 - Benign prostatic hyperplasia without lower urinary tract symptoms Category: Medical (2) Hyperlipidemia: Comment: - Continue atorvastatin 10 mg, as patient's LDL cholesterol is at a desirable level of 75 mg/dL. - Advised to limit consumption of unhealthy foods to better manage triglycerides. Code(s): E78.5 - Hyperlipidemia, unspecified Category: Medical Qualifiers: Hyperlipidemia type: unspecified Qualified Code(s): E78.5 - Hyperlipidemia, unspecified (3) Prediabetes: Comment: - Order hemoglobin A1c test to monitor for diabetes progression, last recorded as 5.9 in 2021. - Discuss dietary modifications to prevent escalation to diabetes. Code(s): R73.03 - Prediabetes Category: Medical (4) Ileostomy present: Comment: - Manage as ongoing condition; no acute issues reported. - Continue regular PSA testing as patient is unable to undergo colonoscopy. Code(s): Z93.2 - Ileostomy status Category: Medical Plan: Health Maintenance: - Advised periodic PSA testing for prostate monitoring - Order thyroid function test, vitamin D level, and one-time screening for hepatitis B, syphilis, and HIV - Discuss importance of healthy diet and reducing junk food intake Patient was informed and verbally consented to the use of an ambient scribe for clinic note documentation during this visit. Plan During our meeting, we discussed the patient's active conditions including hyperlipidemia, benign prostatic hyperplasia, and prediabetes. For benign prostatic hyperplasia, tamsulosin was discussed as a resumption plan if urinary difficulties return, though current frequent urination does not warrant immediate action. For hyperlipidemia, the importance of continuing atorvastatin and reducing dietary intake of unhealthy foods was emphasized to manage lipid levels effectively. In terms of his prediabetic status, it was agreed upon to retest A1c to monitor progression, and lifestyle changes were discussed to mitigate risks. As the patient cannot undergo colonoscopies, we highlighted regular PSA testing as a critical element of ongoing prostate health monitoring. We also planned further diagnostic tests to ensure comprehensive health maintenance, including thyroid function, vitamin D, and infectious disease screenings. Orders: Orders Hemoglobin A1c Today Z00.00 - Encounter for general adult medical examination without abnormal findings HIV Ab/Ag Today Z00.00 - Encounter for general adult medical examination without abnormal findings Vitamin D 25-OH Total Today Z00.00 - Encounter for general adult medical examination without abnormal findings Hepatitis A,B,C Profile Today Z00.00 - Encounter for general adult medical examination without abnormal findings Syphilis Screen Today Z00.00 - Encounter for general adult medical examination without abnormal findings TSH reflex Free T4 Today Z00.00 - Encounter for general adult medical examination without abnormal findings Patient Instructions: - Take atorvastatin and finasteride as prescribed. - Monitor urinary symptoms and resume tamsulosin if needed. - Return for A1c test to monitor blood sugar levels. - Implement dietary changes to reduce junk food intake. - Visit lab for thyroid function, vitamin D, hepatitis B, syphilis, and HIV screenings. - Stay active and maintain current exercise and activity levels. - Continue monitoring health through regular PSA testing.
[2024-12-02 15:22] VITALS: BP 126/78; PULSE 84; RESP 18; TEMP 36.4; O2SAT 98; BMI 23.5
--- OUTSIDE RECORDS SUMMARY | 2024-12-02 18:58 | XMS_ITS | Patient Health Record ---
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 Name Role Phone Virginia Falk Primary Care Provider Rishi Kwong Unavailable [phone] Jeannine Chun Unavailable [phone] Allergies Allergen (clinical drug ingredient) Drug/Non Drug [...] Problem Acquired hammer toe of right foot (923205056286094 5) Other hammer toe(s) (acquired), right foot (M20.41) Active confirmed Problem Onychomycosis (200072120) Onychomycosis (B35.1) Active confirmed Problem Ulcer of toe of right foot (disorder) (453363818943546 01) Skin ulcer of toe of right foot, limited to breakdown of skin (L97.511) Active confirmed Response to treatment, Nonapplicable Problem Localized, primary osteoarthritis of the ankle and/or foot (299764778) Arthritis of joint of lesser toe, right (M19.071) Active confirmed Vital Signs Heart Rate 88 /min 07/09/2024 Blood pressure diastolic 104 mm Hg 07/09/2024 Height 5ft 9in in 07/09/2024 Blood pressure systolic 159 mm Hg 07/09/2024 Weight 145 lbs 07/09/2024 BMI 21.41 kg/m2 07/09/2024 Procedures Procedure Date Ordered Date Performed Result Body Sit e 42236-OBENICS NAIL, 6 OR MORE 06/07/2024 N/A 33094- Debride <25 sq cm 06/07/2024 N/A 62964 I&D ABSCESS- SIMPLE,SINGLE 06/07/2024 N/A Encounters Encounter Location Date Provider [facility] [address] [address] 06/07/2024 Rishi Deion Pain in right toe(s) M79.674 ; Onychomycosis B35.1 ; Pain in left toe(s) M79.675 ; Abscess of toe, right L02.611 ; Other hammer toe(s) (acquired), right foot M20.41 ; Arthritis of joint of lesser toe, right M19.071 and Skin ulcer of toe of right foot, limited to breakdown of skin L97.511 [facility] [address] [address] 07/09/2024 Jeannine Chun Pain in right toe(s) M79.674 ; Other hammer toe(s) (acquired), right foot M20.41 and Arthritis of joint of lesser toe, right M19.071 [facility] [place] [address] [place] [address] 07/09/2024 Jeannine Chun Assessments Encounter Date Diagnosis [...] X ray : Foot, right 3V 07/09/2024 60248-NZZBVXU NAIL, 6 OR MORE 06/07/2024 55128-YIVJJFT NAIL, 6 OR MORE 05/17/2021 04117-EWEEZTD NAIL, 6 OR MORE 06/12/2022 88166-OEZDVLL NAIL, 6 OR MORE 12/18/2022 82822-EWXWLNI NAIL, 6 OR MORE 04/16/2023 17695-NPBGYJD NAIL, 6 OR MORE 10/20/2017 60004-VFEPGIA NAIL, 6 OR MORE 04/20/2018 91547-RBUHLUM NAIL, 6 OR MORE 10/21/2018 86039-QGHKWVT NAIL, 6 OR MORE 04/21/2019 67557-GPVIDRH NAIL, 6 OR MORE 11/11/2019 77928-YMWVWVX NAIL, 6 OR MORE 02/17/2020 75609-CIFGOJJ NAIL, 6 OR MORE 05/18/2020 01456-LBPWLSR NAIL, 6 OR MORE 11/16/2020 53227-Quci Destruction, 02-2311/16/2020 61124-Xyfc Destruction, 02-2305/18/2020 72283-Lfxz Destruction, 02-2302/17/2020 41004-Dczx Destruction, 02-2311/11/2019 56126-Ilrz Destruction, 02-2304/21/2019 31867-Iopi Destruction, 02-2310/21/2018 06094-Qpkq Destruction, 02-2304/20/2018 88120-Vtxh Destruction, 02-2304/16/2023 25651-Cimw Destruction, 02-2312/18/2022 11718-Luxl Destruction, 02-2306/12/2022 24813-Wpve Destruction, 02-2305/17/2021 06615- Debride <25 sq cm 06/07/2024 73755 I&D ABSCESS- SIMPLE,SINGLE 025 51133 - Tenotomy, open flexor 04/28/2019 80993 - TENOTOMY, OPEN, EXTENSOR 020 Insurance Providers Payer Name Payer Address Payer Phone Subscriber Number Group Number Insured Name Patient Relationship to Insured Coverage Start Date Coverage End Date Medicare National [employer] [address] [place] [address] [id number] Donald Rodriguez Self - patient is the insured 8 [employer] [facility] [address] [place] [address] [id number] Donald Rodriguez Self - patient is the insured Medical (General) History Medical History History ICD Code Colitis Crohns disease Measles Mumps Chicken pox CAD Surgical History Surgery Date(Month/Year) ileostomy 1993
== END 2024-12-02 15:37 | disposition home or self-care (01) ==
PROVIDERS: PCP Student in an Organized Health Care Education/Training Program; Visit Provider Student in an Organized Health Care Education/Training Program
DX: R73.03 Prediabetes (principal); N40.0 Benign prostatic hyperplasia without lower urinary tract symptoms; E78.5 Hyperlipidemia, unspecified; Z93.2 Ileostomy status

== ENCOUNTER 2024-12-02 15:04 | Outpatient (REF) | payer MEDICARE, SELFPAY ==
[2024-12-02 16:41] LABS: Hemoglobin A1C 149.8905 umol/L
[2024-12-03 04:04] LABS: Syphilis Screen Nonreactive (Nonreactive)
[2024-12-03 04:25] LABS: HBc Num1 0.07 S/CO (0.00-0.79); HBsAGNum1 0.36 S/CO (0.00-0.99); Hepatitis A Antibody IgM 0.16 Index (0-0.79); Hepatitis B Surface Antigen Negative (Negative); ~Hepatitis A Antibody IgM Nonreactive (Nonreactive)
[2024-12-03 04:50] LABS: HBS Num1 0.00 mIU/mL (0-7.99); HIV Num 1 0.08 S/CO (0.00-0.99); ~HepC Num1 0.07 S/CO (0.00-0.79); ~Hepatitis B Surface Antibody NONREACTIVE (Nonreactive); ~Hepatitis C Antibody Nonreactive (Nonreactive)
== END 2024-12-02 15:05 | disposition home or self-care (01) ==
LOC: HO.LAB 15:04
PROVIDERS: PCP Student in an Organized Health Care Education/Training Program; Visit Provider Student in an Organized Health Care Education/Training Program
DX: Z00.00 Encounter for general adult medical examination without abnormal findings (principal); Z79.899 Other long term (current) drug therapy; N40.0 Benign prostatic hyperplasia without lower urinary tract symptoms; E78.5 Hyperlipidemia, unspecified; R73.03 Prediabetes; Z93.2 Ileostomy status
CPT/HCPCS: 36415; 82306; 83036; 84443; 86704; 86706; 86709; 86780; 86803; 87340; 87389; 96127; 99212

== ENCOUNTER 2025-02-05 05:38 | Emergency (ER) | payer MEDICARE, SELFPAY ==
--- NOTE | ~2025-02-05 | CT_ITS ---
CLINICAL HISTORY: abdominal pain, hx illeostomy CT abdomen and pelvis with contrast Comparison: CT/SR - CT ABDOMEN PELVIS WO IV CON - 09/05/24 11:08 EDT Findings: No consolidation or effusion. The liver is mildly low in attenuation. The gallbladder is decompressed. The spleen, splenule, adrenal glands and pancreas are unremarkable. Kidneys and ureters demonstrate no acute process. Left renal cyst noted. The prostate gland is mildly enlarged. Calculi layer dependently within the bladder. No bowel obstruction or free air. Patent right lower quadrant ostomy. Few borderline mesenteric lymph nodes noted, nonspecific. No acute osseous finding. Impression: No definite acute process. There are tiny calculi layering dependently within the bladder. Patent ostomy. This document has been electronically signed by: Fabio Cooley MD on 02/05/2025 08:09:46
[2025-02-05 05:42] VITALS: BP 135/84; PULSE 94; RESP 20; TEMP 36.3; O2SAT 98; BMI 21.3
[2025-02-05 05:59] LABS: MANUAL DIFF FLAG NO
[2025-02-05 06:00] LABS: Hematocrit 41.9 % (42.0-52.0); Hemoglobin 14.1 g/dl (14.0-18.0); Imm Gran Abs Auto 0.01 X10*3/uL (0.00-0.03); Imm Gran Pct Auto 0.2 % (0.0-0.4); Lymphocytes Absolute Auto 0.7 X10*3/uL (1.2-4.9); Mean Corpuscular HGB Conc 33.7 g/dl (31.0-36.0); Mean Corpuscular Hemoglobin 30.9 pg (27.0-33.0); Mean Corpuscular Volume 91.7 fL (80.0-98.0); NRBC Abs Auto 0.000 X10*3/uL (0.0-0.012); NRBC Pct Auto 0.0 /100WBC (0.0-0.2); Platelet Count 212 X10*3/uL (160-400); Red Blood Count 4.57 X10*6/uL (4.60-5.80); White Blood Count 6.5 X10*3/uL (4.8-10.8)
[2025-02-05 06:14] LABS: Alanine Aminotransferase 151 U/L (0-40); Albumin Level 4.4 g/dL (3.5-5.0); Alkaline Phosphatase 68 U/L (39-117); Anion Gap 13 (12-20); Aspartate Amino Transferase 123 U/L (5-37); Blood Urea Nitrogen 17 mg/dL (9-16); Calcium 10.0 mg/dL (8.4-10.2); Carbon Dioxide 24 mmol/L (22-29); Chloride 103 mmol/L (96-108); Creatinine Clr Calc Pharmacy 69.7; Estimated Glomerular Filt Rate > 60; Potassium 3.3 mmol/L (3.3-5.1); Sodium 137 mmol/L (135-145); Total Protein 6.9 g/dL (6.5-8.0)
[2025-02-05 06:36] LABS: Resp Syncy Virus RNA Qual PCR NEGATIVE (Negative); SARS COV2 PCR INHOUSE NEGATIVE (Negative)
--- OUTSIDE RECORDS SUMMARY | 2025-02-05 06:56 | XMS_ITS | Patient Health Record ---
Author Organization [facility] Address [address] [facility] [place] [address] Care Team Providers Care Industrial Training Specialist Name Role Phone Virginia Falk Primary Care Provider Rishi Kwong Unavailable [phone] Jeannine Chun Unavailable [phone] Allergies Allergen (clinical drug ingredient) Drug/Non Drug [...] Problem Acquired hammer toe of right foot (273937007593044 5) Other hammer toe(s) (acquired), right foot (M20.41) Active confirmed Problem Onychomycosis (540807694) Onychomycosis (B35.1) Active confirmed Problem Ulcer of toe of right foot (disorder) (953697280055330 01) Skin ulcer of toe of right foot, limited to breakdown of skin (L97.511) Active confirmed Response to treatment, Nonapplicable Problem Localized, primary osteoarthritis of the ankle and/or foot (432752517) Arthritis of joint of lesser toe, right (M19.071) Active confirmed Vital Signs Heart Rate 88 /min 07/09/2024 Blood pressure diastolic 104 mm Hg 07/09/2024 Height 5ft 9in in 07/09/2024 Blood pressure systolic 159 mm Hg 07/09/2024 Weight 145 lbs 07/09/2024 BMI 21.41 kg/m2 07/09/2024 Procedures Procedure Date Ordered Date Performed Result Body Sit e 27388-EDYRCME NAIL, 6 OR MORE 06/07/2024 N/A 73687- Debride <25 sq cm 06/07/2024 N/A 92135 I&D ABSCESS- SIMPLE,SINGLE 06/07/2024 N/A Encounters Encounter Location Date Provider [facility] [address] [address] 06/07/2024 Rishi Deion Pain in right toe(s) M79.674 ; Onychomycosis B35.1 ; Pain in left toe(s) M79.675 ; Abscess of toe, right L02.611 ; Other hammer toe(s) (acquired), right foot M20.41 ; Arthritis of joint of lesser toe, right M19.071 and Skin ulcer of toe of right foot, limited to breakdown of skin L97.511 [facility] [address] [address] 07/09/2024 Jeannine Chun Pain in right toe(s) M79.674 ; Other hammer toe(s) (acquired), right foot M20.41 and Arthritis of joint of lesser toe, right M19.071 [facility] [place] [address] [place] [address] 07/09/2024 Jeannine Chun Assessments Encounter Date Diagnosis [...] X ray : Foot, right 3V 07/09/2024 22852-AAHQTLZ NAIL, 6 OR MORE 06/07/2024 48782-PCYBMRC NAIL, 6 OR MORE 05/17/2021 36307-CUBNNAN NAIL, 6 OR MORE 06/12/2022 13152-GXXAJQS NAIL, 6 OR MORE 12/18/2022 49622-WWFEDWP NAIL, 6 OR MORE 04/16/2023 08005-NJNNQKC NAIL, 6 OR MORE 10/20/2017 32699-EGXVMFO NAIL, 6 OR MORE 04/20/2018 98183-EWQTJHG NAIL, 6 OR MORE 10/21/2018 64533-AOTBIDD NAIL, 6 OR MORE 04/21/2019 48636-OYDTUOY NAIL, 6 OR MORE 11/11/2019 92356-IRSCQLI NAIL, 6 OR MORE 02/17/2020 34882-YSHRLCS NAIL, 6 OR MORE 05/18/2020 61660-HVVVGDC NAIL, 6 OR MORE 11/16/2020 94469-Spzb Destruction, 02-2311/16/2020 93845-Wrwz Destruction, 02-2305/18/2020 13278-Gzay Destruction, 02-2302/17/2020 39919-Dxfm Destruction, 02-2311/11/2019 26470-Omnr Destruction, 02-2304/21/2019 26859-Auqg Destruction, 02-2310/21/2018 62459-Sqbi Destruction, 02-2304/20/2018 50668-Raeg Destruction, 02-2304/16/2023 50170-Pfzv Destruction, 02-2312/18/2022 97753-Gmci Destruction, 02-2306/12/2022 22511-Aeet Destruction, 02-2305/17/2021 50763- Debride <25 sq cm 06/07/2024 48447 I&D ABSCESS- SIMPLE,SINGLE 025 26131 - Tenotomy, open flexor 04/28/2019 08110 - TENOTOMY, OPEN, EXTENSOR 020 Insurance Providers Payer Name Payer Address Payer Phone Subscriber Number Group Number Insured Name Patient Relationship to Insured Coverage Start Date Coverage End Date Medicare National [employer] Sv[employer] [address] [place] [address] [id number] Donald Rodriguez Self - patient is the insured 8 [employer] [facility] [address] [place] [address] [id number] Donald Rodriguez Self - patient is the insured Medical (General) History Medical History History ICD Code Colitis Crohns disease Measles Mumps Chicken pox CAD Surgical History Surgery Date(Month/Year) ileostomy 1993
--- NOTE | 2025-02-05 07:08 | ED_ITS ---
HPI - Abdominal Pain General Chief Complaint: Abdominal Pain Stated Complaint: abd pain Time Seen by Provider: 02/05/25 06:34 Source: patient and family Mode of arrival: ambulatory Limitations: no limitations History of Present Illness ED Provider: HPI narrative: History of Present Illness 74-year-old male with long-standing ileostomy (placed 1993) and colostomy presents after developing severe heartburn on night, followed shortly by repeated episodes of vomiting. He reports vomiting approximately three times on Enma night and again once at 02?03 AM this morning. He has experienced ongoing nausea, vomiting, and loose stools since symptom onset and has had markedly poor oral intake with diminished appetite compared to baseline. He denies any known sick contacts. He did eat a substantial amount of short ribs on Enma, which no one else became ill from. He reports a sensation of a ?big, big block down there? in the ostomy area, which is a subjective feeling; however, ostomy output has continued. He denies new abdominal wall herniation. Current concern is persistent gastrointestinal upset not resolving as with his prior self-limited episodes. Related Data Home Medications ?Medication ?Instructions ?Recorded ?Confirmed atorvastatin 10 mg tablet 10 mg PO BEDTIME 09/05/24 Previous Rx's ?Medication ?Instructions ?Recorded finasteride 5 mg tablet 5 mg PO DAILY #90 tabs 11/30 cholecalciferol (vitamin D3) 1,250 1,250 mcg PO QWEEK 12 weeks #12 12/03/24 mcg (50,000 unit) tablet tabs ondansetron 4 mg disintegrating 4 mg PO Q8H PRN nausea and 02/05/25 tablet vomiting #4 tabs sucralfate 100 mg/mL oral 10 ml PO QID 7 days #280 mL 02/05/25 suspension Allergies Allergy/AdvReac Type Severity Reaction Status Date / Time azithromycin AdvReac Intermediate Abdominal Verified 02/05/25 05:44 Pain Review of Systems Review of Systems Positive: nausea, vomiting, diarrhea, decreased appetite, heartburn. Negative/Not discussed beyond above; no additional systems reviewed during the encounter. [facility] Past Medical History Medical History (Updated 02/05/25 @ 08:33 by Giancarlo Bhatti DO) Vitamin D deficiency Hyperlipidemia Ileostomy present Prediabetes CAD (coronary artery disease) Surgical History (Updated 02/05/25 @ 08:33 by Giancarlo Bhatti DO) H/O ileostomy Family History Family History Mother HTN (hypertension) Diabetes Father HTN (hypertension) Brother Diabetes Sister Diabetes Social History Social History Household Members: Friend(s) Housing: House Do you presently have visiting nurse or other home services: No Alcohol intake: current Alcohol intake frequency: holidays/special occasions only Patient Tobacco Use Status: Never used Tobacco Smoked in Last 30 Days: No e-Cigarette/Vaping Use: Never Used Use of substances other than those prescribed or required for medical reasons: No Advance Directives: No Advance Directives Information Provided: Yes service: No Current occupational status: employed and retired Cognitive needs: No Hearing needs: No Vision needs: Yes (rx glasses) Physical Exam ED Exam Exam: Physical Exam: * General: Awake, conversational, no acute distress. * S1-S2 RRR * Abdomen: Ostomy site inspected ? skin intact, ostomy functional, no evidence of hernia. Bowel sounds present. Abdomen soft, nondistended. No localized tenderness elicited. * Pulmonary: Mask applied for comfort. * Alert and oriented x 4 Vital Signs: Vital Signs - 24 hr 02/05/25 05:42 02/05/25 08:12 Temperature 97.3 F Pulse Rate 94 Respiratory Rate 20 16 Blood Pressure 135/84 Pulse Oximetry 98 Oxygen Delivery Method Room Air BMI result Body Mass Index 21.3 Medical Decision Making Medical Decision Making MDM Narrative: 7:54 AM 02/05/2025 (Dr. Giancarlo Bhatti): 1. Acute gastritis / gastrointestinal upset with nausea, vomiting, and diarrhea. 2. Possible viral GI infection. 3. Possible SBO Plan: * Administer IV fluids for hydration. * Initiate IV antiemetics and supportive medications. * Obtain blood work (including hepatic and pancreatic panels) as ordered. * Monitor response; if symptoms improve and patient tolerates oral intake, consider discharge. If ongoing inability to tolerate PO or recurrent emesis, will pursue further imaging/management. * CT abdomen and pelvis with IV contrast to exclude SBO 8:27 AM 02/05/2025 (Dr. Giancarlo Bhatti): Re-evaluated, discussed CT findings, still has mild symptoms of the stomach we will give additional medications prior to discharge Differential Diagnosis Differential Diagnoses: The differential diagnosis associated with the presentation includes Differential Diagnosis - Viral gastroenteritis: Most likely, given the acute onset of nausea, vomiting, and diarrhea, and absence of sick contacts. Viral GI infections commonly present with these symptoms and are a frequent cause of acute gastrointestinal upset in adults. - Foodborne illness: Considered due to recent ingestion of short ribs, although no other individuals who ate the same food became ill. Foodborne pathogens can cause similar symptoms but are less likely in the absence of other affected contacts. - Acute gastritis or peptic ulcer disease: Supported by the severe heartburn and repeated vomiting. Gastritis and peptic ulcer disease can present with upper GI symptoms, especially after dietary indiscretion. - Mechanical complications related to ileostomy/colostomy (e.g., partial obstruction): Considered due to subjective sensation of a block in the ostomy area, but ostomy output is present and CT imaging shows no evidence of obstruction, making this less likely. - Medication- induced GI upset: Possible if patient is taking medications known to cause gastrointestinal side effects, though this was not discussed during the encounter. - Lyme disease: Less likely, but mentioned as a remote consideration in the clinical discussion. - Pancreatitis, cholecystitis, or hepatitis: To be ruled out by laboratory evaluation, given the gastrointestinal symptoms and the planned workup for liver, gallbladder, and pancreatic enzymes. Admission/Observation Consideration of admission/observation: Escalation of care including admission/observation considered Lab Data MDM Lab Attestation statement: I reviewed the patient's lab results. 02/05/25 05:52 02/05/25 05:52 Labs: Lab Results 02/05/25 Range/Units 05:52 WBC 6.5 (4.8-10.8) X10*3/uL RBC 4.57 L (4.60-5.80) X10*6/uL Hgb 14.1 (14.0-18.0) g/dl Hct 41.9 L (42.0-52.0) % MCV 91.7 (80.0-98.0) fL MCH 30.9 (27.0-33.0) pg MCHC 33.7 (31.0-36.0) g/dl RDW 11.9 (11.0-16.0) % Plt Count 212 (160-400) X10*3/uL MPV 9.1 L (9.4-12.4) fL Immature Gran % (Auto) 0.2 (0.0-0.4) % Neut % (Auto) 67.0 (45-73) % Lymph % (Auto) 10.7 L (20-40) % Edwards % (Auto) 17.6 H (2-11) % Eos % (Auto) 4.0 (0-4) % Baso % (Auto) 0.5 (0-2) % Lymph # (Auto) 0.7 L (1.2-4.9) X10*3/uL Edwards # (Auto) 1.1 (0.1-1.2) X10*3/uL Eos # (Auto) 0.3 (0.0-0.4) X10*3/uL Baso # (Auto) 0.0 (0.0-0.2) X10*3/uL Abs Immat Gran (auto) 0.01 (0.00-0.03) X10*3/uL Absolute Neuts (auto) 4.3 (2.0-8.3) x10*3/uL Absolute Nucleated RBC 0.000 (0.0-0.012) X10*3/uL Nucleated RBC % (auto) 0.0 (0.0-0.2) /100WBC Sodium 137 (135-145) mmol/L Potassium 3.3 (3.3-5.1) mmol/L Chloride 103 (96-108) mmol/L Carbon Dioxide 24 (22-29) mmol/L Anion Gap 13 (12-20) BUN 17 H (9-16) mg/dL Creatinine 0.86 (0.5-1.4) mg/dL Estim Creat Clear Calc 69.7 Estimated GFR > 60 Random Glucose 142 H (60-115) mg/dL Calcium 10.0 D (8.4-10.2) mg/dL Total Bilirubin 0.8 (0.0-1.0) mg/dL AST 123 H (5-37) U/L ALT 151 H (0-40) U/L Alkaline Phosphatase 68 (39-117) U/L Total Protein 6.9 (6.5-8.0) g/dL Albumin 4.4 (3.5-5.0) g/dL Influenza Type A (PCR) NEGATIVE (Negative) Influenza Type B (PCR) NEGATIVE (Negative) RSV RNA Qual (PCR) NEGATIVE (Negative) SARS-CoV-2 RNA (RT-PCR) NEGATIVE (Negative) Radiology Impression Discussion of test interpretation with radiology: I have reviewed the radiologist's reading. ( No definite acute process. There are tiny calculi layering dependently within the bladder. Patent ostomy) Medications Administered Discontinued Medications Generic Name Dose Route Start Last Admin Trade Name Freq PRN Reason Stop Dose Admin Al Hydroxide/Mg Hydroxide 15 ml 02/05/25 07:09 02/05/25 07:19 Magnesium Hydrox/Alum Hydrox 30 Ml Oral.Susp PO 02/05/25 07:10 15 ml ONCE ONE Administration Famotidine 20 mg 02/05/25 07:09 02/05/25 07:20 Famotidine/Pf 20 Mg/2 Ml Vial IVPUSH 02/05/25 07:10 20 mg ONCE ONE Administration Sodium Chloride 1,000 mls @ 999 mls/hr 02/05/25 07:15 02/05/25 07:18 Ns IV 02/05/25 08:15 999 mls/hr .Q1H1M SIXTO Administration Iohexol 100 ml 02/05/25 07:33 02/05/25 07:36 Iohexol 350 Mg/Ml 100 Ml Infus..Btl IV 02/05/25 07:34 85 ml ONCE ONE Administration Morphine Sulfate 4 mg 02/05/25 08:00 02/05/25 08:12 Morphine Sulfate 4 Mg/Ml Cartridge IVPUSH 02/05/25 08:01 4 mg ONCE ONE Administration Protocol Ondansetron HCl 4 mg 02/05/25 07:09 02/05/25 07:20 Ondansetron Hcl 4 Mg/2 Ml Vial IVPUSH 02/05/25 07:10 4 mg ONCE ONE Administration Discharge Plan Discharge Clinical Impression: Nausea and vomiting, Ileostomy status, Diarrhea, unspecified Additional Instructions: As discussed your blood work, CT abdomen and pelvis unremarkable, I do suspect that this is likely related to the food that you a and possibly viral gastroenteritis, but they did want to make sure you do not have any obstructive patterns or any other infectious etiology on imaging that cat scan has a excluded, you received fluids, medication for nausea, make sure to keep up with fluid losses, I recommend very simple bland diet broth, with salt and boiled vegetables and meat as well as toast for the next few days, Carafate 20 minutes before any meals, Zofran as needed for nausea and vomiting, Tylenol as needed for pain any other issues or concerns come back to the ER Prescriptions: New sucralfate 100 mg/mL suspension 10 ml PO QID 7 Days Qty: 280 0RF Rx Instructions: swish in mouth and swallow; use after food/drink ondansetron 4 mg tablet,disintegrating 4 mg PO Q8H PRN (Reason: nausea and vomiting) Qty: 4 0RF No Action finasteride 5 mg tablet 5 mg PO DAILY Qty: 90 1RF cholecalciferol (vitamin D3) 1,250 mcg (50,000 unit) tablet 1,250 mcg PO QWEEK 84 Days Qty: 12 0RF atorvastatin 10 mg tablet 10 mg PO BEDTIME Print Language: Turkmen
[2025-02-05] MEDS: Magnesium Hydrox/Alum Hydrox 30 ML ORAL.SUSP 15 ML PO (07:19)
[2025-02-05] MEDS: iohexoL 350 MG/ML 100 ML INFUS..BTL IV (07:36)
[2025-02-05 08:12] VITALS: RESP 16
[2025-02-05 08:51] VITALS: BP 122/76; PULSE 87; RESP 16; TEMP 36.6; O2SAT 97
[2025-02-05] MEDS: Lidocaine HCl Viscous 2 % 15 ML SOLUTION PO (08:51)
[2025-02-05 09:13] VITALS: BP 122/76; PULSE 87; RESP 16; TEMP 36.6; O2SAT 97
== END 2025-02-05 09:14 | disposition home or self-care (01) ==
PROVIDERS: Emergency Provider Emergency Medicine
DX: R11.2 Nausea with vomiting, unspecified (principal); R19.7 Diarrhea, unspecified; Z93.2 Ileostomy status; E11.9 Type 2 diabetes mellitus without complications; E78.5 Hyperlipidemia, unspecified; Z79.899 Other long term (current) drug therapy; Z03.818 Encounter for observation for suspected exposure to other biological agents ruled out
CPT/HCPCS: 74177; 80053; 85025; 87637; 96361; 96374; 96375; 96376; 99285; J1308; J2270; J2405; Q9967

== ENCOUNTER → 2025-02-05 07:10 | Outpatient (BNV) | payer MEDICARE, SELFPAY | PROVIDERS: Emergency Provider Emergency Medicine; Visit Provider Radiology Vascular & Interventional Radiology | DX: R10.9 Unspecified abdominal pain (principal) | CPT/HCPCS: 74177 ==